=== PATIENT | female | born 1970 | race Two or more races ===

== ENCOUNTER 2016-08-18 13:40 | Emergency (ER) | payer OTHER ==
[~2016-08-18 13:40] MED LIST: DOCU10CA PO; FLUO40CA PO; GABA600T PO; HYDR-3719 PO; LORA10TA2 PO; LORT5TAB PO; MECL-68 PO; NEUR600T PO; PROZ20CA11 PO; SENO8.6T10 PO; ZOFR8TAB PO; albuterol inhaler INH; birth control pill OR; claritin OR; vicodin OR
[2016-08-18] MEDS ORDERED: HYDROmorphone HCL 1 MG/ML SYRINGE (J1170) As Ordered ONE (14:22)
[2016-08-18] MEDS ORDERED: ONDANSETRON 4MG/2ML VIAL (J2405) As Ordered ONE (14:22)
[2016-08-18] MEDS ORDERED: IPRATROPIUM 0.5MG/ALBUTEROL 2.5MG INH SOL UD 3ML (DUONEB)(J7620) As Ordered ONE (14:26)
[2016-08-18 15:09] LABS: BASO % 0.5 % (0.0-1.0); EOS # 0.4 K/mm3 (0.0-0.50); EOS % 4.8 % (0.0-3.0); LARGE UNSTAINED CELL # 0.3 K/mm3 (0.0-0.4); LARGE UNSTAINED CELL % 3.5 % (0.0-4.0); LYMPH # 2.9 K/mm3 (1.5-4.5); LYMPH % 35.5 % (24.0-44.0); MEAN CORPUSCULAR HEMOGLOBIN 26.8 pg (27.0-33.0); MEAN CORPUSCULAR HGB CONC 33.1 g/dl (32.0-36.5); MEAN CORPUSCULAR VOLUME 81.1 fl (80.0-96.0); MONO # 0.5 K/mm3 (0.0-0.8); MONO % 6.8 % (0.0-5.0); PLATELET COUNT, AUTOMATED 324 k/mm3 (150-450); RED CELL DISTRIBUTION WIDTH 14.6 % (11.5-14.5); WHITE BLOOD COUNT 8.1 K/mm3 (4.0-10.0)
[2016-08-18 15:50] LABS: CALCIUM LEVEL 8.9 MG/DL (8.5-10.1); CREATININE FOR GFR 1.13 MG/DL (0.55-1.02); GLOMERULAR FILTRATION RATE 55.4 (>58); POTASSIUM SERUM 4.6 MEQ/L (3.5-5.1)
--- NOTE | 2016-08-18 18:03 | EDDOCDS ---
Nurse's Notes [facility] Name: Amber Duff Age: 46 yrs Sex: Female : 1970 Arrival Date: 08/18/2016 Time: 13:40 Bed 8 Private MD: Diagnosis: Chest pain, unspecified;Dyspnea Presentation: 08/18 13:47 Presenting complaint: Patient states: night sweats the past 2 nights, heaviness to jjr sternal and left anterior chest constant since 0900 this morning, reports vertigo and HELMS developing HARP MAKER, 324 mg ASA and 1 nitro given en route. Aspirin was taken HARP MAKER. Adult Sepsis Screening: The patient does not have new or worsening altered mentation. Patient's respiratory rate is less than 22. Systolic blood pressure is greater than 100. Patient has a qSOFA score of 0- Negative Sepsis Screen. Suicide/Homicide risk assessment- the patient denies having any suicidal and/or homicidal ideations and does not present with any other emotional, behavioral or mental health complaints. 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 Transition of care: patient was not received from another setting of care. 13:47 Acuity: HANS Level 3 jjr 13:47 Method Of Arrival: Ambulance jjr Triage Assessment: 14:03 General: Appears in no apparent distress, well nourished, well groomed, Behavior is jjr appropriate for age, pt had sudden onset of pain to both legs with stiffening noted then had pain to hip which she needed to stand and reposition to relieve, pt reports extra physical strain with work this past week. Pain: Location: mid-sternal area and left breast. Pt Declines HIV testing. Neurological: No deficits noted. Reports dizziness, headache. Cardiovascular: Chest pain radiates Does not radiate. episodes are continuous began 5 hours HARP MAKER. Respiratory: Airway is patent Respiratory effort is even, unlabored, Respiratory pattern is regular. Derm: Skin is pink, warm & dry. 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 Cymbalta 60 mg Oral cpDR 1 cap once daily 2. gabapentin 1200mg Oral tab 3 times per day 3. magnesium oxide 400 mg Oral tab twice a day 4. meclizine 25 mg Oral tab 1 tab tid prn 5. Zofran (as hydrochloride) 4 mg Oral tab 2 tabs q8h prn 6. naproxen 500 mg Oral tab 1 tab 2 times per day - PMHx: Asthma; Levon's disease; peripheral neuropathy; Vertigo; Chronic CSF leak; - PSHx: Tubal ligation; Rhinoplasty; Tonsillectomy; varicose veins; Hysterectomy; Sinus Surgery; left shoulder and right hip surgeries; - Social history: No barriers to communication noted, The patient speaks fluent Citizen Of [place], Smoking status: Patient states was never smoker of tobacco. - : The pt / caregiver states he / she is not on anticoagulants. Home medication list is obtained from the patient. - Exposure Risk Screening:: None identified. Screenin:44 Screening information is obtained from the patient. Fall risk: No risks identified. jjr Assistance ADL's: requires no assistance with activities of daily living. Abuse/DV Screen: The patient / caregiver reports he/she is: not in a situation that causes fear, pain or injury. Nutritional screening: No deficits noted. Advance Directives: There is no active DNR order. home support is adequate. Assessment: 14:44 General: Appears in no apparent distress, reports HELMS and pain from waist down more jjr bothersome then chest heaviness. Cardiovascular: Rhythm is sinus rhythm. 16:00 General: Appears in no apparent distress, HELMS and chest pressure lessened since arrival. jjr 17:07 General: Appears in no apparent distress, talking on cell phone. Neurological: No jjr deficits noted. Cardiovascular: Rhythm is sinus rhythm. Respiratory: No deficits noted. Derm: No deficits noted. 18:02 General: Appears in no apparent distress, Behavior is appropriate for age. jjr Neurological: No deficits noted. Cardiovascular: Rhythm is sinus rhythm. Respiratory: No deficits noted. Derm: No deficits noted. Vital Signs: 14:02 BP 160 / 96; Pulse 88; Resp 20; Temp 96.4(O); Pulse Ox 99% on R/A; jjr 14:19 Weight 99.79 kg (R); Height 5 ft. 9 in. (175.26 cm) (R); Pain 8/10; jjr 14:20 BP 142 / 64 (auto/); jjr 14:20 Pulse 90 MON; Pulse Ox 97% ; jjr 14:40 BP 129 / 69 (auto/); jjr 14:40 Pulse 78 MON; Resp 18; Pulse Ox 90% on R/A; jjr 14:43 Pulse Ox 95% on R/A; jjr 14:43 Pain 7/10; jjr 15:00 BP 127 / 73 (auto/); jjr 15:00 Pulse 74 MON; Pulse Ox 90% ; jjr 15:05 Pulse 76 MON; Resp 20; Pulse Ox 92% on 3 lpm NC; jjr 15:20 BP 124 / 72 (auto/); jjr 15:20 Pulse 90 MON; Pulse Ox 90% ; jjr 15:39 Pulse 70 MON; Pulse Ox 93% ; jjr 15:40 BP 114 / 63 (auto/); jjr 16:00 BP 111 / 57 (auto/); jjr 16:00 Pulse 90 MON; Pulse Ox 97% ; jjr 16:20 BP 101 / 57 (auto/); jjr 16:20 Pulse 68 MON; Pulse Ox 96% ; jjr 16:40 BP 105 / 57 (auto/); jjr 16:40 Pulse 86 MON; Pulse Ox 97% ; jjr 17:00 BP 110 / 56 (auto/); jjr 17:00 Pulse 82 MON; Pulse Ox 99% ; jjr 17:40 BP 103 / 53 (auto/); jjr 17:40 Pulse 74 MON; Resp 18; Temp 96.4(O); Pulse Ox 96% on R/A; jjr 14:19 Body Mass Index 32.49 (99.79 kg, 175.26 cm) jjr Vitals: 14:02 Log In Time N/A - ambulance arrival. jr ED Course: 13:41 Patient visited by Enedelia Hidalgo, Science Education Professor. deg 13:41 Claudia Reagan, RN is Primary Nurse. deg 13:41 Patient moved to Waiting deg 13:41 Patient moved to 8 deg 13:47 Triage Initiated jjr 13:50 EKG done. (by ED staff). Reviewed by Ihsan Mckinley MD. jrd 13:56 Ihsan Mckinley MD is Attending Physician. ml 13:56 Patient visited by Ihsan Mckinley MD. ml 14:22 Patient visited by Max Clinton PCA. jrd 14:34 CARDIAC MARKER PANEL Sent. sew 14:34 MED Profile Sent. sew 14:34 CBC with Diff Sent. sew 14:44 The patient / caregiver is instructed regarding the plan of care and ED course. Cardiac jjr monitor on. Pulse ox on. NIBP on. 14:44 Maintain field IV. Dressing intact. Good blood return noted. Site clean & dry. Gauge & jjr site: 20 gauge right hand. 14:45 Patient visited by Claudia Reagan, ROSA. jjr 15:14 [facility] Payment Agreement was scanned into [employer] and attached to record. [email or web address] 16:01 Patient visited by Claudia Reagan RN. jjr 17:07 Patient visited by Ashia Carlson. sew 17:07 EKG done. (by ED staff). Reviewed by Ihsan Mckinley MD. sew 17:08 Patient visited by Claudia Reagan, ROSA. jjr 17:50 [facility] is Referral Physician. ml 18:02 Discontinued lock intact, bleeding controlled, pressure dressing applied, No jjr redness/swelling at site. No procedures done that require assistance. Administered Medications: 14:28 Drug: Ondansetron 4 mg [ondansetron HCl 2 mg/mL intravenous solution (2 mL)] Route: jjr IVP; Site: right hand; 14:28 Drug: Dilaudid - HYDROmorphone 1 mg [hydromorphone 1 mg/mL injection syringe (1 mL)] jjr Route: IVP; Site: right hand; 14:43 Follow up: Pain 10 Adult jjr 14:29 Drug: Albuterol-Ipratropium 3 ml [ipratropium-albuterol 0.5 mg-3 mg(2.5 mg base)/3 mL js11 nebulization soln (3 mL)] Route: Inhalation; RT: 14:29 Initial Med Neb Given as ordered Patient was instructed and evaluated on procedure js11 Patient tolerated procedure well without adverse effect. Oxygen is room air. Respiratory: Breath sounds are clear bilaterally. Order Results: Lab Order: CBC with Diff; SPEC'M 08/18/16 14:33 Test: WHITE BLOOD COUNT; Value: 8.1; Range: 4.0-10.0; Units: K/mm3; Status: F Test: RED BLOOD COUNT; Value: 5.22; Range: 4.00-5.40; Units: M/mm3; Status: F Test: HEMOGLOBIN; Value: 14.0; Range: 12.0-16.0; Units: g/dl; Status: F Test: HEMATOCRIT; Value: 42.3; Range: 36.0-47.0; Units: %; Status: F Test: MEAN CORPUSCULAR VOLUME; Value: 81.1; Range: 80.0-96.0; Units: fl; Status: F Test: MEAN CORPUSCULAR HEMOGLOBIN; Value: 26.8; Range: 27.0-33.0; Abnormal: Below low normal; Units: pg; Status: F Test: MEAN CORPUSCULAR HGB CONC; Value: 33.1; Range: 32.0-36.5; Units: g/dl; Status: F Test: RED CELL DISTRIBUTION WIDTH; Value: 14.6; Range: 11.5-14.5; Abnormal: Above high normal; Units: %; Status: F Test: PLATELET COUNT, AUTOMATED; Value: 324; Range: 150-450; Units: k/mm3; Status: F Test: NEUTROPHILS %; Value: 49.0; Range: 36.0-66.0; Units: %; Status: F Test: LYMPH %; Value: 35.5; Range: 24.0-44.0; Units: %; Status: F Test: MONO %; Value: 6.8; Range: 0.0-5.0; Abnormal: Above high normal; Units: %; Status: F Test: EOS %; Value: 4.8; Range: 0.0-3.0; Abnormal: Above high normal; Units: %; Status: F Test: BASO %; Value: 0.5; Range: 0.0-1.0; Units: %; Status: F Test: LARGE UNSTAINED CELL %; Value: 3.5; Range: 0.0-4.0; Units: %; Status: F Test: NEUTROPHILS #; Value: 4.0; Range: 1.8-7.7; Units: K/mm3; Status: F Test: LYMPH #; Value: 2.9; Range: 1.5-4.5; Units: K/mm3; Status: F Test: MONO #; Value: 0.5; Range: 0.0-0.8; Units: K/mm3; Status: F Test: EOS #; Value: 0.4; Range: 0.0-0.50; Units: K/mm3; Status: F Test: BASO #; Value: 0.0; Range: 0.0-0.2; Units: K/mm3; Status: F Test: LARGE UNSTAINED CELL #; Value: 0.3; Range: 0.0-0.4; Units: K/mm3; Status: F Lab Order: MED Profile; SPEC'M 08/18/16 14:33 Test: GLUCOSE, FASTING; Value: 94; Range: 70-105; Units: MG/DL; Status: F Test: BLOOD UREA NITROGEN; Value: 23; Range: 7-18; Abnormal: Above high normal; Units: MG/DL; Status: F Test: CREATININE FOR GFR; Value: 1.13; Range: 0.55-1.02; Abnormal: Above high normal; Units: MG/DL; Status: F Test: GLOMERULAR FILTRATION RATE; Value: 55.4; Range: >58; Abnormal: Below low normal; Status: F Test: SODIUM LEVEL; Value: 143; Range: 136-145; Units: MEQ/L; Status: F Test: POTASSIUM SERUM; Value: 4.6; Range: 3.5-5.1; Units: MEQ/L; Status: F Test: CHLORIDE LEVEL; Value: 109; Range: 98-107; Abnormal: Above high normal; Units: MEQ/L; Status: F Test: CARBON DIOXIDE LEVEL; Value: 25; Range: 21-32; Units: MEQ/L; Status: F Test: ANION GAP; Value: 9; Range: 8-16; Units: MEQ/L; Status: F Test: CALCIUM LEVEL; Value: 8.9; Range: 8.5-10.1; Units: MG/DL; Status: F Test Note: ; Units are mL/min/1.73 m2 Chronic Kidney Disease Staging per NKF: Stage I & II GFR >=60 Normal to Mildly Decreased Stage III GFR 30-59 Moderately Decreased Stage IV GFR 15-29 Severely Decreased Stage V GFR <15 Very Little GFR Left ESRD GFR <15 on COATINGS INSPECTOR Lab Order: CARDIAC MARKER PANEL; [facility] 08/18[facility] 14:33 Test: CPK CREATINE PHOSPHOKINASE; Value: 326; Range: 26-192; Abnormal: Above high normal; Units: U/L; Status: F Test: CK-MB VALUE MASS; Value: 3.7; Range: 0.0-3.6; Abnormal: Above high normal; Units: NG/ML; Status: F Test: MB/CK RELATIVE INDEX; Value: 1.13; Range: < OR =4; Status: F Test: TROPONIN I; Value: < 0.02; Range: < 0.10; Units: NG/ML; Status: F Test Note: ; DIAGNOSIS CRITERIA MMB ng/ml Relative Index (RI) NON-AMI < or = 5 N/A [place] > 5 < or = 4 AMI > 5 > 4 Lab Order: CARDIAC MARKER PANEL; [facility] 08/18/16 16:59 Test: CPK CREATINE PHOSPHOKINASE; Value: 308; Range: 26-192; Abnormal: Above high normal; Units: U/L; Status: F Test: CK-MB VALUE MASS; Value: 3.4; Range: 0.0-3.6; Units: NG/ML; Status: F Test: MB/CK RELATIVE INDEX; Value: 1.10; Range: < OR =4; Status: F Test: TROPONIN I; Value: < 0.02; Range: < 0.10; Units: NG/ML; Status: F Test Note: ; DIAGNOSIS CRITERIA MMB ng/ml Relative Index (RI) NON-AMI < or = 5 N/A [place] > 5 < or = 4 AMI > 5 > 4 Outcome: 17:50 Discharge ordered by Provider. ml 18:02 Discharge Assessment: patient administered narcotics - yes. Pt provided with safe jjr discharge. The following High Risk Discharge criteria are identified: None. Discharged to home ambulatory, with family. Condition: stable. Discharge instructions given to patient, Instructed on discharge instructions, follow up and referral plans. Demonstrated understanding of instructions. No special radiology studies were completed. Property sent home with patient. 18:03 Patient left the ED. jjr Signatures: Ihsan Mckinley MD MD ml Enedelia Hidalgo, Science Education Professor Unit deg Claudia Reagan, RN RN jjr Americo cMdonnell js11 Ashia Carlson Joseph, MANAGER WORKERS COMPENSATION MANAGER WORKERS COMPENSATION jrd Sweta Glasgow, Reg Reg [email or web address] Corrections: (The following items were deleted from the chart) 14:05 13:47 Presenting complaint: Patient states: night sweats the past 2 nights, heaviness jjr to sternal and left anterior chest constant since 0900 this morning, reports vertigo and HELMS developing HARP MAKER jjr MTDD
--- NOTE | 2016-08-18 18:03 | EDDOCDS ---
Physician Documentation [facility] Name: Amber Duff Age: 46 yrs Sex: Female : 1970 Arrival Date: 08/18/2016 Time: 13:40 Bed 8 Private MD: Disposition: 08/18/16 17:50 Discharged to Home/Self Care. Impression: Chest pain, unspecified, Dyspnea. - Condition is Stable. - Discharge Instructions: Nonspecific Chest Pain. - Medication Reconciliation, Local Pharmacy Hours form. - Follow up: [facility]; When: 2 - 3 days. - Problem is new. - Symptoms have improved. - Notes: return if worsening symptoms. follow up w dr adams. Historical: - Allergies: Cipro PO; Clindamycin; Doxycycline; IODINEIODINE CONTAINING; Morphine; Erythromycin; seafood; lactose (bulk); Peanut; - Home Meds: 1. Cymbalta 60 mg Oral cpDR 1 cap once daily 2. gabapentin 1200mg Oral tab 3 times per day 3. magnesium oxide 400 mg Oral tab twice a day 4. meclizine 25 mg Oral tab 1 tab tid prn 5. Zofran (as hydrochloride) 4 mg Oral tab 2 tabs q8h prn 6. naproxen 500 mg Oral tab 1 tab 2 times per day - PMHx: Asthma; Levon's disease; peripheral neuropathy; Vertigo; Chronic CSF leak; - PSHx: Tubal ligation; Rhinoplasty; Tonsillectomy; varicose veins; Hysterectomy; Sinus Surgery; left shoulder and right hip surgeries; - Social history: No barriers to communication noted, The patient speaks fluent [place], Smoking status: Patient states was never smoker of tobacco. - : The pt / caregiver states he / she is not on anticoagulants. Home medication list is obtained from the patient. - Exposure Risk Screening:: None identified. 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 9 in. (175.26 cm) (R); Pain 8/10; jjr 14:20 BP 142 / 64 (auto/); jjr 14:20 Pulse 90 MON; Pulse Ox 97% ; jjr 14:40 BP 129 / 69 (auto/); jjr 14:40 Pulse 78 MON; Resp 18; Pulse Ox 90% on R/A; jjr 14:43 Pulse Ox 95% on R/A; jjr 14:43 Pain 7/10; jjr 15:00 BP 127 / 73 (auto/); jjr 15:00 Pulse 74 MON; Pulse Ox 90% ; jjr 15:05 Pulse 76 MON; Resp 20; Pulse Ox 92% on 3 lpm NC; jjr 15:20 BP 124 / 72 (auto/); jjr 15:20 Pulse 90 MON; Pulse Ox 90% ; jjr 15:39 Pulse 70 MON; Pulse Ox 93% ; jjr 15:40 BP 114 / 63 (auto/); jjr 16:00 BP 111 / 57 (auto/); jjr 16:00 Pulse 90 MON; Pulse Ox 97% ; jjr 16:20 BP 101 / 57 (auto/); jjr 16:20 Pulse 68 MON; Pulse Ox 96% ; jjr 16:40 BP 105 / 57 (auto/); jjr 16:40 Pulse 86 MON; Pulse Ox 97% ; jjr 17:00 BP 110 / 56 (auto/); jjr 17:00 Pulse 82 MON; Pulse Ox 99% ; jjr 17:40 BP 103 / 53 (auto/); jjr 17:40 Pulse 74 MON; Resp 18; Temp 96.4(O); Pulse Ox 96% on R/A; jjr 14:19 Body Mass Index 32.49 (99.79 kg, 175.26 cm) jjr MDM: 13:49 ECG WITH READING ER PHYS+CARDIAG ordered. EDMS 14:11 IV Saline Lock ordered. ml 14:11 Buttonhole Marker/Pulse Ox/q 15 min VS ordered. ml 14:11 Rhythm Strip to chart ordered. ml 14:11 Repeat EKG (put time details section) ordered. ml 14:11 Redraw CIP &Troponin (put time in details section) ordered. ml 14:11 Albuterol-Ipratropium 3 ml Inhalation once ordered. ml 14:11 Call Respiratory ordered. ml 14:12 CBC with Diff Ordered. EDMS 14:12 MED Profile Ordered. EDMS 14:12 Chest, 1 View Ordered. EDMS 14:13 Ondansetron 4 mg IVP once ordered. ml 14:13 Dilaudid - HYDROmorphone 1 mg IVP once ordered. ml 14:17 Call Respiratory complete. deg 14:17 Redraw CIP &Troponin (put time in details section) complete. deg 14:18 Repeat EKG (put time details section) complete. deg 14:18 ECG WITH READING ER PHYS ordered. EDMS 14:19 CARDIAC MARKER PANEL Ordered. EDMS 15:10 Financial registration complete. [email or web address] 15:14 [facility] Payment Agreement was scanned into [employer] and attached to record. [email or web address] 15:31 CBC with Diff Reviewed. ml 15:31 CARDIAC MARKER PANEL Reviewed. ml 15:53 MED Profile Reviewed. ml 17:10 CARDIAC MARKER PANEL Ordered. EDMS 17:40 CARDIAC MARKER PANEL Reviewed. ml Administered Medications: 14:28 Drug: Ondansetron 4 mg [ondansetron HCl 2 mg/mL intravenous solution (2 mL)] Route: jjr IVP; Site: right hand; 14:28 Drug: Dilaudid - HYDROmorphone 1 mg [hydromorphone 1 mg/mL injection syringe (1 mL)] jjr Route: IVP; Site: right hand; 14:43 Follow up: Pain 01/14 Adult jjr 14:29 Drug: Albuterol-Ipratropium 3 ml [ipratropium-albuterol 0.5 mg-3 mg(2.5 mg base)/3 mL js11 nebulization soln (3 mL)] Route: Inhalation; Signatures: Dispatcher [employer] EDOK Ihsan Mckinley MD MD ml Murray, Denise, Valet Attendant Unit deg Claudia Reagan RN RN Sweta Menard, Reg Reg [email or web address] Americo Mcdonnell js11 The chart was reviewed and I authenticate all verbal orders and agree with the evaluation and treatment provided.Corrections: (The following items were deleted from the chart) 15:36 14:12 CARDIAC INJURY PROFILE+LAB ordered. EDMS EDMS 15:36 14:12 TROPONIN+LAB ordered. EDMS EDMS Attachments: 15:14 [facility] Payment Agreement [email or web address] MTDD
--- NOTE | 2016-08-19 06:29 | ECGEPIP ---
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
--- NOTE | 2016-08-19 06:33 | ECGEPIP ---
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
--- NOTE | 2016-08-19 07:59 | REP ---
AP PORTABLE CHEST: 08/18/2016. Clinical history: Dyspnea, chest pain. Comparison: 06/01/2016 chest x-ray, portable chest 02/20/2016. Lungs are well inflated without infiltrate, effusion, atelectasis. Heart not enlarged for portable technique. There is no vascular redistribution or edema. The airway and aorta unremarkable. No free air under the diaphragm. No apical pneumothorax. Impression: 1. No acute cardiopulmonary change. Signed by Hunter Begum MD 08/19/2016 06:52 P
--- NOTE | 2016-08-20 19:04 | EDDOCDS ---
Physician Documentation [facility] Name: Amber Duff Age: 46 yrs Sex: Female : 1970 Arrival Date: 08/18/2016 Time: 13:40 Bed 8 Private MD: Disposition: 08/18/16 17:50 Discharged to Home/Self Care. Impression: Chest pain, unspecified, Dyspnea. - Condition is Stable. - Discharge Instructions: Nonspecific Chest Pain. - Medication Reconciliation, Local Pharmacy Hours form. - Follow up: Jose Garza [facility]; When: 2 - 3 days. - Problem is new. - Symptoms have improved. - Notes: return if worsening symptoms. follow up w dr adams. Historical: - Allergies: Cipro PO; Clindamycin; Doxycycline; IODINEIODINE CONTAINING; Morphine; Erythromycin; seafood; lactose (bulk); Peanut; - Home Meds: 1. Cymbalta 60 mg Oral cpDR 1 cap once daily 2. gabapentin 1200mg Oral tab 3 times per day 3. magnesium oxide 400 mg Oral tab twice a day 4. meclizine 25 mg Oral tab 1 tab tid prn 5. Zofran (as hydrochloride) 4 mg Oral tab 2 tabs q8h prn 6. naproxen 500 mg Oral tab 1 tab 2 times per day - PMHx: Asthma; Levon's disease; peripheral neuropathy; Vertigo; Chronic CSF leak; - PSHx: Tubal ligation; Rhinoplasty; Tonsillectomy; varicose veins; Hysterectomy; Sinus Surgery; left shoulder and right hip surgeries; - Social history: No barriers to communication noted, The patient speaks fluent Polish, Smoking status: Patient states was never smoker of tobacco. - : The pt / caregiver states he / she is not on anticoagulants. Home medication list is obtained from the patient. - Exposure Risk Screening:: None identified. 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 9 in. (175.26 cm) (R); Pain 8/10; jjr 14:20 BP 142 / 64 (auto/); jjr 14:20 Pulse 90 MON; Pulse Ox 97% ; jjr 14:40 BP 129 / 69 (auto/); jjr 14:40 Pulse 78 MON; Resp 18; Pulse Ox 90% on R/A; jjr 14:43 Pulse Ox 95% on R/A; jjr 14:43 Pain 7/10; jjr 15:00 BP 127 / 73 (auto/); jjr 15:00 Pulse 74 MON; Pulse Ox 90% ; jjr 15:05 Pulse 76 MON; Resp 20; Pulse Ox 92% on 3 lpm NC; jjr 15:20 BP 124 / 72 (auto/); jjr 15:20 Pulse 90 MON; Pulse Ox 90% ; jjr 15:39 Pulse 70 MON; Pulse Ox 93% ; jjr 15:40 BP 114 / 63 (auto/); jjr 16:00 BP 111 / 57 (auto/); jjr 16:00 Pulse 90 MON; Pulse Ox 97% ; jjr 16:20 BP 101 / 57 (auto/); jjr 16:20 Pulse 68 MON; Pulse Ox 96% ; jjr 16:40 BP 105 / 57 (auto/); jjr 16:40 Pulse 86 MON; Pulse Ox 97% ; jjr 17:00 BP 110 / 56 (auto/); jjr 17:00 Pulse 82 MON; Pulse Ox 99% ; jjr 17:40 BP 103 / 53 (auto/); jjr 17:40 Pulse 74 MON; Resp 18; Temp 96.4(O); Pulse Ox 96% on R/A; jjr 14:19 Body Mass Index 32.49 (99.79 kg, 175.26 cm) jjr MDM: 13:49 ECG WITH READING ER PHYS+CARDIAG ordered. EDMS 14:11 IV Saline Lock ordered. ml 14:11 Formulator Compounder/Pulse Ox/q 15 min VS ordered. ml 14:11 Rhythm Strip to chart ordered. ml 14:11 Repeat EKG (put time details section) ordered. ml 14:11 Redraw CIP &Troponin (put time in details section) ordered. ml 14:11 Albuterol-Ipratropium 3 ml Inhalation once ordered. ml 14:11 Call Respiratory ordered. ml 14:12 CBC with Diff Ordered. EDMS 14:12 MED Profile Ordered. EDMS 14:12 Chest, 1 View Ordered. EDMS 14:13 Ondansetron 4 mg IVP once ordered. ml 14:13 Dilaudid - HYDROmorphone 1 mg IVP once ordered. ml 14:17 Call Respiratory complete. deg 14:17 Redraw CIP &Troponin (put time in details section) complete. deg 14:18 Repeat EKG (put time details section) complete. deg 14:18 ECG WITH READING ER PHYS ordered. EDMS 14:19 CARDIAC MARKER PANEL Ordered. EDMS 15:10 Financial registration complete. [id number] 15:14 [id number] Payment Agreement was scanned into [employer] and attached to record. [email or web address] 15:31 CBC with Diff Reviewed. ml 15:31 CARDIAC MARKER PANEL Reviewed. ml 15:53 MED Profile Reviewed. ml 17:10 CARDIAC MARKER PANEL Ordered. EDMS 17:40 CARDIAC MARKER PANEL Reviewed. ml 22:05 T-Sheet-- Draft Copy was scanned into [employer] and attached to record. klr 08/19 18:08 PCR was scanned into [employer] and attached to record. kf3 02 10:33 ECG/EKG was scanned into [employer] and attached to record. gb 10:33 Radiology Report was scanned into [employer] and attached to record. gb Administered Medications: 08/18 14:28 Drug: Ondansetron 4 mg [ondansetron HCl 2 mg/mL intravenous solution (2 mL)] Route: jjr IVP; Site: right hand; 14:28 Drug: Dilaudid - HYDROmorphone 1 mg [hydromorphone 1 mg/mL injection syringe (1 mL)] jjr Route: IVP; Site: right hand; 14:43 Follow up: Pain 01/14 Adult jjr 14:29 Drug: Albuterol-Ipratropium 3 ml [ipratropium-albuterol 0.5 mg-3 mg(2.5 mg base)/3 mL js11 nebulization soln (3 mL)] Route: Inhalation; Signatures: Dispatcher [employer] EDIhsan Beltrán MD MD ml Murray, Denise, Hearing Examiner Unit deg Emmanuelle Cota, Reg Reg gb Fidcarlier, Gustavo, Reg Reg kf3 Claudia Reagan, RN RN Sweta Menard, Reg Reg ks16 Cierra Christensen Jordan js11 The chart was reviewed and I authenticate all verbal orders and agree with the evaluation and treatment provided.Corrections: (The following items were deleted from the chart) 15:36 14:12 CARDIAC INJURY PROFILE+LAB ordered. EDMS EDMS 15:36 14:12 TROPONIN+LAB ordered. EDMS EDMS Attachments: 15:14 [facility] Payment Agreement [email or web address] 22:05 T-Sheet-- Draft Copy r 08/20 10:33 ECG/EKG gb Chart Complete MTDD
--- NOTE | 2016-08-20 19:04 | EDDOCDS ---
Physician Documentation [facility] Name: Amber Duff Age: 46 yrs Sex: Female : 1970 Arrival Date: 08/18/2016 Time: 13:40 Bed 8 Private MD: Disposition: 08/18/16 17:50 Discharged to Home/Self Care. Impression: Chest pain, unspecified, Dyspnea. - Condition is Stable. - Discharge Instructions: Nonspecific Chest Pain. - Medication Reconciliation, Local Pharmacy Hours form. - Follow up: Jose Garza [facility]; When: 2 - 3 days. - Problem is new. - Symptoms have improved. - Notes: return if worsening symptoms. follow up w dr adams. Historical: - Allergies: Cipro PO; Clindamycin; Doxycycline; IODINEIODINE CONTAINING; Morphine; Erythromycin; seafood; lactose (bulk); Peanut; - Home Meds: 1. Cymbalta 60 mg Oral cpDR 1 cap once daily 2. gabapentin 1200mg Oral tab 3 times per day 3. magnesium oxide 400 mg Oral tab twice a day 4. meclizine 25 mg Oral tab 1 tab tid prn 5. Zofran (as hydrochloride) 4 mg Oral tab 2 tabs q8h prn 6. naproxen 500 mg Oral tab 1 tab 2 times per day - PMHx: Asthma; Levon's disease; peripheral neuropathy; Vertigo; Chronic CSF leak; - PSHx: Tubal ligation; Rhinoplasty; Tonsillectomy; varicose veins; Hysterectomy; Sinus Surgery; left shoulder and right hip surgeries; - Social history: No barriers to communication noted, The patient speaks fluent Latvian, Smoking status: Patient states was never smoker of tobacco. - : The pt / caregiver states he / she is not on anticoagulants. Home medication list is obtained from the patient. - Exposure Risk Screening:: None identified. 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 9 in. (175.26 cm) (R); Pain 8/10; jjr 14:20 BP 142 / 64 (auto/); jjr 14:20 Pulse 90 MON; Pulse Ox 97% ; jjr 14:40 BP 129 / 69 (auto/); jjr 14:40 Pulse 78 MON; Resp 18; Pulse Ox 90% on R/A; jjr 14:43 Pulse Ox 95% on R/A; jjr 14:43 Pain 7/10; jjr 15:00 BP 127 / 73 (auto/); jjr 15:00 Pulse 74 MON; Pulse Ox 90% ; jjr 15:05 Pulse 76 MON; Resp 20; Pulse Ox 92% on 3 lpm NC; jjr 15:20 BP 124 / 72 (auto/); jjr 15:20 Pulse 90 MON; Pulse Ox 90% ; jjr 15:39 Pulse 70 MON; Pulse Ox 93% ; jjr 15:40 BP 114 / 63 (auto/); jjr 16:00 BP 111 / 57 (auto/); jjr 16:00 Pulse 90 MON; Pulse Ox 97% ; jjr 16:20 BP 101 / 57 (auto/); jjr 16:20 Pulse 68 MON; Pulse Ox 96% ; jjr 16:40 BP 105 / 57 (auto/); jjr 16:40 Pulse 86 MON; Pulse Ox 97% ; jjr 17:00 BP 110 / 56 (auto/); jjr 17:00 Pulse 82 MON; Pulse Ox 99% ; jjr 17:40 BP 103 / 53 (auto/); jjr 17:40 Pulse 74 MON; Resp 18; Temp 96.4(O); Pulse Ox 96% on R/A; jjr 14:19 Body Mass Index 32.49 (99.79 kg, 175.26 cm) jjr MDM: 13:49 ECG WITH READING ER PHYS+CARDIAG ordered. EDMS 14:11 IV Saline Lock ordered. ml 14:11 Shoulder Boner/Pulse Ox/q 15 min VS ordered. ml 14:11 Rhythm Strip to chart ordered. ml 14:11 Repeat EKG (put time details section) ordered. ml 14:11 Redraw CIP &Troponin (put time in details section) ordered. ml 14:11 Albuterol-Ipratropium 3 ml Inhalation once ordered. ml 14:11 Call Respiratory ordered. ml 14:12 CBC with Diff Ordered. EDMS 14:12 MED Profile Ordered. EDMS 14:12 Chest, 1 View Ordered. EDMS 14:13 Ondansetron 4 mg IVP once ordered. ml 14:13 Dilaudid - HYDROmorphone 1 mg IVP once ordered. ml 14:17 Call Respiratory complete. deg 14:17 Redraw CIP &Troponin (put time in details section) complete. deg 14:18 Repeat EKG (put time details section) complete. deg 14:18 ECG WITH READING ER PHYS ordered. EDMS 14:19 CARDIAC MARKER PANEL Ordered. EDMS 15:10 Financial registration complete. [email or web address] 15:14 [facility] Payment Agreement was scanned into [employer] and attached to record. [email or web address] 15:31 CBC with Diff Reviewed. ml 15:31 CARDIAC MARKER PANEL Reviewed. ml 15:53 MED Profile Reviewed. ml 17:10 CARDIAC MARKER PANEL Ordered. EDMS 17:40 CARDIAC MARKER PANEL Reviewed. ml 22:05 T-Sheet-- Draft Copy was scanned into [employer] and attached to record. klr 08/19 18:08 PCR was scanned into [employer] and attached to record. kf3 02 10:33 ECG/EKG was scanned into [employer] and attached to record. gb 10:33 Radiology Report was scanned into [employer] and attached to record. gb Administered Medications: 08/18 14:28 Drug: Ondansetron 4 mg [ondansetron HCl 2 mg/mL intravenous solution (2 mL)] Route: jjr IVP; Site: right hand; 14:28 Drug: Dilaudid - HYDROmorphone 1 mg [hydromorphone 1 mg/mL injection syringe (1 mL)] jjr Route: IVP; Site: right hand; 14:43 Follow up: Pain 01/14 Adult jjr 14:29 Drug: Albuterol-Ipratropium 3 ml [ipratropium-albuterol 0.5 mg-3 mg(2.5 mg base)/3 mL js11 nebulization soln (3 mL)] Route: Inhalation; Signatures: Dispatcher [employer] EDIhsan Beltrán MD MD ml Murray, Denise, Plant Guide Unit deg Emmanuelle Cota, Reg Reg gb Fidcarlier, Gustavo, Reg Reg kf3 Claudia Reagan, RN RN Sweta Menard, Reg Reg ks16 Cierra Christensen Jordan js11 The chart was reviewed and I authenticate all verbal orders and agree with the evaluation and treatment provided.Corrections: (The following items were deleted from the chart) 15:36 14:12 CARDIAC INJURY PROFILE+LAB ordered. EDMS EDMS 15:36 14:12 TROPONIN+LAB ordered. EDMS EDMS Attachments: 15:14 [facility] Payment Agreement [email or web address] 22:05 T-Sheet-- Draft Copy r 08/20 10:33 ECG/EKG gb Chart Complete MTDD
--- NOTE | 2016-08-20 19:05 | EDDOCDS ---
Nurse's Notes [facility] Name: Amber Duff Age: 46 yrs Sex: Female : 1970 Arrival Date: 08/18/2016 Time: 13:40 Bed 8 Private MD: Diagnosis: Chest pain, unspecified;Dyspnea Presentation: 08/18 13:47 Presenting complaint: Patient states: night sweats the past 2 nights, heaviness to jjr sternal and left anterior chest constant since 0900 this morning, reports vertigo and HELMS developing PLATE MOUNTER, 324 mg ASA and 1 nitro given en route. Aspirin was taken PLATE MOUNTER. Adult Sepsis Screening: The patient does not have new or worsening altered mentation. Patient's respiratory rate is less than 22. Systolic blood pressure is greater than 100. Patient has a qSOFA score of 0- Negative Sepsis Screen. Suicide/Homicide risk assessment- the patient denies having any suicidal and/or homicidal ideations and does not present with any other emotional, behavioral or mental health complaints. Status: Patient is not a emergency service worker or dependent. Transition of care: patient was not received from another setting of care. 13:47 Acuity: HANS Level 3 jjr 13:47 Method Of Arrival: Ambulance jjr Triage Assessment: 14:03 General: Appears in no apparent distress, well nourished, well groomed, Behavior is jjr appropriate for age, pt had sudden onset of pain to both legs with stiffening noted then had pain to hip which she needed to stand and reposition to relieve, pt reports extra physical strain with work this past week. Pain: Location: mid-sternal area and left breast. Pt Declines HIV testing. Neurological: No deficits noted. Reports dizziness, headache. Cardiovascular: Chest pain radiates Does not radiate. episodes are continuous began 5 hours PLATE MOUNTER. Respiratory: Airway is patent Respiratory effort is even, unlabored, Respiratory pattern is regular. Derm: Skin is pink, warm & dry. 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 Cymbalta 60 mg Oral cpDR 1 cap once daily 2. gabapentin 1200mg Oral tab 3 times per day 3. magnesium oxide 400 mg Oral tab twice a day 4. meclizine 25 mg Oral tab 1 tab tid prn 5. Zofran (as hydrochloride) 4 mg Oral tab 2 tabs q8h prn 6. naproxen 500 mg Oral tab 1 tab 2 times per day - PMHx: Asthma; Levon's disease; peripheral neuropathy; Vertigo; Chronic CSF leak; - PSHx: Tubal ligation; Rhinoplasty; Tonsillectomy; varicose veins; Hysterectomy; Sinus Surgery; left shoulder and right hip surgeries; - Social history: No barriers to communication noted, The patient speaks fluent Guinean, Smoking status: Patient states was never smoker of tobacco. - : The pt / caregiver states he / she is not on anticoagulants. Home medication list is obtained from the patient. - Exposure Risk Screening:: None identified. Screenin:44 Screening information is obtained from the patient. Fall risk: No risks identified. jjr Assistance ADL's: requires no assistance with activities of daily living. Abuse/DV Screen: The patient / caregiver reports he/she is: not in a situation that causes fear, pain or injury. Nutritional screening: No deficits noted. Advance Directives: There is no active DNR order. home support is adequate. Assessment: 14:44 General: Appears in no apparent distress, reports HELMS and pain from waist down more jjr bothersome then chest heaviness. Cardiovascular: Rhythm is sinus rhythm. 16:00 General: Appears in no apparent distress, HELMS and chest pressure lessened since arrival. jjr 17:07 General: Appears in no apparent distress, talking on cell phone. Neurological: No jjr deficits noted. Cardiovascular: Rhythm is sinus rhythm. Respiratory: No deficits noted. Derm: No deficits noted. 18:02 General: Appears in no apparent distress, Behavior is appropriate for age. jjr Neurological: No deficits noted. Cardiovascular: Rhythm is sinus rhythm. Respiratory: No deficits noted. Derm: No deficits noted. Vital Signs: 14:02 BP 160 / 96; Pulse 88; Resp 20; Temp 96.4(O); Pulse Ox 99% on R/A; jjr 14:19 Weight 99.79 kg (R); Height 5 ft. 9 in. (175.26 cm) (R); Pain 8/10; jjr 14:20 BP 142 / 64 (auto/); jjr 14:20 Pulse 90 MON; Pulse Ox 97% ; jjr 14:40 BP 129 / 69 (auto/); jjr 14:40 Pulse 78 MON; Resp 18; Pulse Ox 90% on R/A; jjr 14:43 Pulse Ox 95% on R/A; jjr 14:43 Pain 7/10; jjr 15:00 BP 127 / 73 (auto/); jjr 15:00 Pulse 74 MON; Pulse Ox 90% ; jjr 15:05 Pulse 76 MON; Resp 20; Pulse Ox 92% on 3 lpm NC; jjr 15:20 BP 124 / 72 (auto/); jjr 15:20 Pulse 90 MON; Pulse Ox 90% ; jjr 15:39 Pulse 70 MON; Pulse Ox 93% ; jjr 15:40 BP 114 / 63 (auto/); jjr 16:00 BP 111 / 57 (auto/); jjr 16:00 Pulse 90 MON; Pulse Ox 97% ; jjr 16:20 BP 101 / 57 (auto/); jjr 16:20 Pulse 68 MON; Pulse Ox 96% ; jjr 16:40 BP 105 / 57 (auto/); jjr 16:40 Pulse 86 MON; Pulse Ox 97% ; jjr 17:00 BP 110 / 56 (auto/); jjr 17:00 Pulse 82 MON; Pulse Ox 99% ; jjr 17:40 BP 103 / 53 (auto/); jjr 17:40 Pulse 74 MON; Resp 18; Temp 96.4(O); Pulse Ox 96% on R/A; jjr 14:19 Body Mass Index 32.49 (99.79 kg, 175.26 cm) jjr Vitals: 14:02 Log In Time N/A - ambulance arrival. jr ED Course: 13:41 Patient visited by Enedelia Hidalgo, Head Bone Grinder. deg 13:41 Claudia Reagan, RN is Primary Nurse. deg 13:41 Patient moved to Waiting deg 13:41 Patient moved to 8 deg 13:47 Triage Initiated jjr 13:50 EKG done. (by ED staff). Reviewed by Ihsan Mckinley MD. jrd 13:56 Ihsan Mckinley MD is Attending Physician. ml 13:56 Patient visited by Ihsan Mckinley MD. ml 14:22 Patient visited by Max Clinton PCA. jrd 14:34 CARDIAC MARKER PANEL Sent. sew 14:34 MED Profile Sent. sew 14:34 CBC with Diff Sent. sew 14:44 The patient / caregiver is instructed regarding the plan of care and ED course. Cardiac jjr monitor on. Pulse ox on. NIBP on. 14:44 Maintain field IV. Dressing intact. Good blood return noted. Site clean & dry. Gauge & jjr site: 20 gauge right hand. 14:45 Patient visited by Claudia Reagan, ROSA. jjr 15:14 [facility] Payment Agreement was scanned into [employer] and attached to record. ks16 16:01 Patient visited by Claudia Reagan, ROSA. jjr 17:07 Patient visited by Ashia Carlson. sew 17:07 EKG done. (by ED staff). Reviewed by Ihsan Mckinley MD. sew 17:08 Patient visited by Claudia Reagan, ROSA. jjr 17:50 [facility] ml 18:02 Discontinued lock intact, bleeding controlled, pressure dressing applied, No jjr redness/swelling at site. No procedures done that require assistance. 22:05 T-Sheet-- Draft Copy was scanned into [employer] and attached to record. klr 08/19 06:44 EKG-ADULT Returned. EDMS 06:44 ECG WITH READING ER PHYS Returned. EDMS 08:11 Chest, 1 View Returned. EDMS 18:08 PCR was scanned into [employer] and attached to record. kf3 08/20 10:33 ECG/EKG was scanned into [employer] and attached to record. gb 10:33 Radiology Report was scanned into [employer] and attached to record. gb Administered Medications: 08/18 14:28 Drug: Ondansetron 4 mg [ondansetron HCl 2 mg/mL intravenous solution (2 mL)] Route: jjr IVP; Site: right hand; 14:28 Drug: Dilaudid - HYDROmorphone 1 mg [hydromorphone 1 mg/mL injection syringe (1 mL)] jjr Route: IVP; Site: right hand; 14:43 Follow up: Pain 01/14 Adult jjr 14:29 Drug: Albuterol-Ipratropium 3 ml [ipratropium-albuterol 0.5 mg-3 mg(2.5 mg base)/3 mL js11 nebulization soln (3 mL)] Route: Inhalation; RT: 14:29 Initial Med Neb Given as ordered Patient was instructed and evaluated on procedure js11 Patient tolerated procedure well without adverse effect. Oxygen is room air. Respiratory: Breath sounds are clear bilaterally. Order Results: Lab Order: CBC with Diff; SPEC'M 08/18/16 14:33 Test: WHITE BLOOD COUNT; Value: 8.1; Range: 4.0-10.0; Units: K/mm3; Status: F Test: RED BLOOD COUNT; Value: 5.22; Range: 4.00-5.40; Units: M/mm3; Status: F Test: HEMOGLOBIN; Value: 14.0; Range: 12.0-16.0; Units: g/dl; Status: F Test: HEMATOCRIT; Value: 42.3; Range: 36.0-47.0; Units: %; Status: F Test: MEAN CORPUSCULAR VOLUME; Value: 81.1; Range: 80.0-96.0; Units: fl; Status: F Test: MEAN CORPUSCULAR HEMOGLOBIN; Value: 26.8; Range: 27.0-33.0; Abnormal: Below low normal; Units: pg; Status: F Test: MEAN CORPUSCULAR HGB CONC; Value: 33.1; Range: 32.0-36.5; Units: g/dl; Status: F Test: RED CELL DISTRIBUTION WIDTH; Value: 14.6; Range: 11.5-14.5; Abnormal: Above high normal; Units: %; Status: F Test: PLATELET COUNT, AUTOMATED; Value: 324; Range: 150-450; Units: k/mm3; Status: F Test: NEUTROPHILS %; Value: 49.0; Range: 36.0-66.0; Units: %; Status: F Test: LYMPH %; Value: 35.5; Range: 24.0-44.0; Units: %; Status: F Test: MONO %; Value: 6.8; Range: 0.0-5.0; Abnormal: Above high normal; Units: %; Status: F Test: EOS %; Value: 4.8; Range: 0.0-3.0; Abnormal: Above high normal; Units: %; Status: F Test: BASO %; Value: 0.5; Range: 0.0-1.0; Units: %; Status: F Test: LARGE UNSTAINED CELL %; Value: 3.5; Range: 0.0-4.0; Units: %; Status: F Test: NEUTROPHILS #; Value: 4.0; Range: 1.8-7.7; Units: K/mm3; Status: F Test: LYMPH #; Value: 2.9; Range: 1.5-4.5; Units: K/mm3; Status: F Test: MONO #; Value: 0.5; Range: 0.0-0.8; Units: K/mm3; Status: F Test: EOS #; Value: 0.4; Range: 0.0-0.50; Units: K/mm3; Status: F Test: BASO #; Value: 0.0; Range: 0.0-0.2; Units: K/mm3; Status: F Test: LARGE UNSTAINED CELL #; Value: 0.3; Range: 0.0-0.4; Units: K/mm3; Status: F Lab Order: [facility]; SPEC'M 08/18/16 14:33 Test: GLUCOSE, FASTING; Value: 94; Range: 70-105; Units: MG/DL; Status: F Test: BLOOD UREA NITROGEN; Value: 23; Range: 7-18; Abnormal: Above high normal; Units: MG/DL; Status: F Test: CREATININE FOR GFR; Value: 1.13; Range: 0.55-1.02; Abnormal: Above high normal; Units: MG/DL; Status: F Test: GLOMERULAR FILTRATION RATE; Value: 55.4; Range: >58; Abnormal: Below low normal; Status: F Test: SODIUM LEVEL; Value: 143; Range: 136-145; Units: MEQ/L; Status: F Test: POTASSIUM SERUM; Value: 4.6; Range: 3.5-5.1; Units: MEQ/L; Status: F Test: CHLORIDE LEVEL; Value: 109; Range: 98-107; Abnormal: Above high normal; Units: MEQ/L; Status: F Test: CARBON DIOXIDE LEVEL; Value: 25; Range: 21-32; Units: MEQ/L; Status: F Test: ANION GAP; Value: 9; Range: 8-16; Units: MEQ/L; Status: F Test: CALCIUM LEVEL; Value: 8.9; Range: 8.5-10.1; Units: MG/DL; Status: F Test Note: ; Units are mL/min/1.73 m2 Chronic Kidney Disease Staging per NKF: Stage I & II GFR >=60 Normal to Mildly Decreased Stage III GFR 30-59 Moderately Decreased Stage IV GFR 15-29 Severely Decreased Stage V GFR <15 Very Little GFR Left ESRD GFR <15 on FINE ARTIST Lab Order: CARDIAC MARKER PANEL; SPEC'M 08/18/16 14:33 Test: CPK CREATINE PHOSPHOKINASE; Value: 326; Range: 26-192; Abnormal: Above high normal; Units: U/L; Status: F Test: CK-MB VALUE MASS; Value: 3.7; Range: 0.0-3.6; Abnormal: Above high normal; Units: NG/ML; Status: F Test: MB/CK RELATIVE INDEX; Value: 1.13; Range: < OR =4; Status: F Test: TROPONIN I; Value: < 0.02; Range: < 0.10; Units: NG/ML; Status: F Test Note: ; DIAGNOSIS CRITERIA MMB ng/ml Relative Index (RI) NON-AMI < or = 5 N/A [place] > 5 < or = 4 AMI > 5 > 4 Lab Order: CARDIAC MARKER PANEL; SPEC'M 08/18/16 16:59 Test: CPK CREATINE PHOSPHOKINASE; Value: 308; Range: 26-192; Abnormal: Above high normal; Units: U/L; Status: F Test: CK-MB VALUE MASS; Value: 3.4; Range: 0.0-3.6; Units: NG/ML; Status: F Test: MB/CK RELATIVE INDEX; Value: 1.10; Range: < OR =4; Status: F Test: TROPONIN I; Value: < 0.02; Range: < 0.10; Units: NG/ML; Status: F Test Note: ; DIAGNOSIS CRITERIA MMB ng/ml Relative Index (RI) NON-AMI < or = 5 N/A [place]ONE > 5 < or = 4 AMI > 5 > 4 Radiology Order: EKG-ADULT Test: EKG-ADULT REASON FOR EXAMINATION: Chest Pain; Stationary ECG Study; [facility] ED; ; Test Date: 2016-08-18; Pat Name: AMBER DUFF Department:; Room: -; Gender: F 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; : 1970 Requested By: Ihsan Mckinley; Order Number: [id number] Reading MD: Ihsan Mckinley; Measurements; Intervals [place]; Rate: 76 P: 21; ME: 132 QRS: -18; QRSD: 96 T: 15; QT: 392; QTc: 442; Interpretive Statements; SINUS RHYTHM; LEFTWARD AXIS; NONSPECIFIC ST T WAVE CHANGES; ; CW 02/20/16 RATE DECREASED; Electronically Signed On 08-19-2016 6:29:28 EST by Ihsan Mckinley; Radiology Order: Chest, 1 View Test: Chest, 1 View REASON FOR EXAMINATION: sob,cp; AP PORTABLE CHEST: 08/18/2016.; ; Clinical history: Dyspnea, chest pain.; ; Comparison: 06/01/2016 chest x-ray, portable chest 02/20/2016.; ; Lungs are well inflated without infiltrate, effusion, atelectasis. Heart not; enlarged for portable technique. There is no vascular redistribution or edema.; The airway and aorta unremarkable. No free air under the diaphragm. No apical; pneumothorax.; ; Impression:; ; 1. 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 18:02 Discharge Assessment: patient administered narcotics - yes. Pt provided with safe jjr discharge. The following High Risk Discharge criteria are identified: None. Discharged to home ambulatory, with family. Condition: stable. Discharge instructions given to patient, Instructed on discharge instructions, follow up and referral plans. Demonstrated understanding of instructions. No special radiology studies were completed. Property sent home with patient. 18:03 Patient left the ED. jjr Signatures: Dispatcher [employer] EDOH Ihsan Mckinley MD MD ml Murray, Denise, Head Bone Grinder Unit deg Emmanuelle Cota, Reg Reg gb Gustavo Stone, Reg Reg kf3 Claudia Reagan, RN RN jjr Americo Mcdonnell js11 Ashia Carlson Joseph, FEATURE WRITER FEATURE WRITER d Sweta Glasgow, Reg Reg ks16 Cierra Christensen Corrections: (The following items were deleted from the chart) 14:05 13:47 Presenting complaint: Patient states: night sweats the past 2 nights, heaviness jjr to sternal and left anterior chest constant since 0900 this morning, reports vertigo and HELMS developing PLATE MOUNTER jjr Chart Complete MTDD
== END 2016-08-18 18:03 | disposition home or self-care (01) ==
LOC: M ED 13:40
DX: R06.00 Dyspnea, unspecified (principal); R07.9 Chest pain, unspecified; J45.909 Unspecified asthma, uncomplicated; G71.19 Other specified myotonic disorders; G62.9 Polyneuropathy, unspecified; R42 Dizziness and giddiness; G96.0 Cerebrospinal fluid leak; Z79.899 Other long term (current) drug therapy; Z88.8 Allergy status to other drugs, medicaments and biological substances; Z88.1 Allergy status to other antibiotic agents; Z88.5 Allergy status to narcotic agent; Z91.013 Allergy to seafood; Z91.011 Allergy to milk products; Z91.010 Allergy to peanuts
CPT/HCPCS: 36415; 71010; 80048; 82550; 82553; 85025; 93005; 93041; 94640; 96374; 96375; 99284; J1170; J2405

== ENCOUNTER 2016-08-24 22:39 | Emergency (ER) | payer OTHER ==
[2016-08-24] MEDS ORDERED: KETOROLAC 30 MG/ML VIAL (J1885) As Ordered ONE (23:28)
[2016-08-24] MEDS ORDERED: ONDANSETRON 4MG/2ML VIAL (J2405) As Ordered ONE (23:28)
[2016-08-24 23:29] LABS: BASO % 0.4 % (0.0-1.0); EOS # 0.2 K/mm3 (0.0-0.50); EOS % 2.3 % (0.0-3.0); LARGE UNSTAINED CELL # 0.1 K/mm3 (0.0-0.4); LARGE UNSTAINED CELL % 1.1 % (0.0-4.0); LYMPH # 0.6 K/mm3 (1.5-4.5); LYMPH % 6.1 % (24.0-44.0); MEAN CORPUSCULAR HEMOGLOBIN 27.4 pg (27.0-33.0); MEAN CORPUSCULAR VOLUME 80.6 fl (80.0-96.0); MONO # 0.6 K/mm3 (0.0-0.8); MONO % 6.9 % (0.0-5.0); NEUTROPHILS # 7.3 K/mm3 (1.8-7.7); NEUTROPHILS % 83.3 % (36.0-66.0); PLATELET COUNT, AUTOMATED 271 k/mm3 (150-450); RED CELL DISTRIBUTION WIDTH 15.1 % (11.5-14.5); WHITE BLOOD COUNT 8.7 K/mm3 (4.0-10.0)
[2016-08-24 23:41] LABS: ALBUMIN 3.5 GM/DL (3.2-5.2); ALBUMIN/GLOBULIN RATIO 0.81 (1.00-1.93); ALKALINE PHOSPHATASE 126 U/L (45-117); ALT/SGPT 20 U/L (12-78); AMYLASE 43 U/L (25-115); ANION GAP 9 MEQ/L (8-16); AST/SGOT 18 U/L (15-37); BILIRUBIN,DIRECT < 0.1 MG/DL (0.0-0.2); BILIRUBIN,TOTAL 0.4 MG/DL (0.2-1.0); BLOOD UREA NITROGEN 9 MG/DL (7-18); CALCIUM LEVEL 8.6 MG/DL (8.5-10.1); CARBON DIOXIDE LEVEL 25 MEQ/L (21-32); CHLORIDE LEVEL 105 MEQ/L (98-107); CREATININE FOR GFR 1.14 MG/DL (0.55-1.02); GLOMERULAR FILTRATION RATE 54.9 (>58); GLUCOSE, FASTING 93 MG/DL (70-105); POTASSIUM SERUM 3.5 MEQ/L (3.5-5.1); SODIUM LEVEL 139 MEQ/L (136-145); TOTAL PROTEIN 7.8 GM/DL (6.4-8.2)
[2016-08-25] MEDS ORDERED: OSELTAMIVIR PHOSPHATE 75 MG CAP (TAMIFLU) As Ordered ONE (01:45)
--- NOTE | 2016-08-25 02:05 | EDDOCDS ---
Physician Documentation [facility] Name: Amber Duff Age: 46 yrs Sex: Female : 1970 Arrival Date: 08/24/2016 Time: 22:39 Bed 17 Private MD: Disposition: 08/25/16 01:43 Discharged to Home/Self Care. Impression: Influenza due to identified novel influenza A virus with other respiratory manifestations. - Condition is Stable. - Discharge Instructions: Influenza, Adult, Influenza, Adult, [id number]. - Prescriptions for Tamiflu 75 mg Oral Capsule - take 1 capsule by ORAL route every 12 hours for 5 days; 10 capsule. - Medication Reconciliation, Local Pharmacy Hours form. - Follow up: MAYA Salgado; When: 2 - 3 days; Reason: Continuance of care. - Problem is an acute exacerbation. - Symptoms have improved. Historical: - Allergies: Cipro PO; Clindamycin; Doxycycline; Erythrocin; Erythromycin; IODINEIODINE CONTAINING; lactose (bulk); Morphine; Peanut; seafood; Vagisil; glue on bandaids; - Home Meds: 1. Cymbalta 60 mg Oral cpDR 1 cap once daily 2. gabapentin 1200mg Oral tab 3 times per day 3. magnesium oxide 400 mg Oral tab twice a day 4. meclizine 25 mg Oral tab 1 tab tid prn 5. naproxen 500 mg Oral tab 1 tab 2 times per day 6. tizanidine 6 mg oral cap 1 cap 3 times per day 7. Zofran (as hydrochloride) 4 mg Oral tab 2 tabs Q8H PRN 8. prednisone 30 mg Oral tab 1 tab once daily 9. Tylenol 325 mg Oral tab 2 tabs every 4-6 hours (Last dose: 08/24/2016 19:00) - PMHx: Asthma; Chronic CSF leak; Levon's disease; peripheral neuropathy; Vertigo; stiffman syndrome; - PSHx: Tubal ligation; Rhinoplasty; Tonsillectomy; varicose veins; Hysterectomy; Sinus Surgery; left shoulder and right hip surgeries; - Social history: Smoking status: Patient states was never smoker of tobacco. No barriers to communication noted, The patient speaks fluent Eritrean, Speaks appropriately for age. - Family history: Not pertinent. - : The pt / caregiver states he / she is not on anticoagulants. Home medication list is obtained from the patient. - Exposure Risk Screening:: None identified. RN HEMO DIALYSIS: 08/24 22:54 LMP N/A - Hysterectomy ko2 Vital Signs: 22:54 BP 107 / 57; Pulse 107; Resp 20; Temp 100.9(O); Pulse Ox 98% ; Weight 111.13 kg / 245 ko2 lbs; Height 5 ft. 9 in. (175.26 cm); Pain 7/10; 08/25 00:56 Temp 100(O); ko2 02:01 BP 129 / 53; Pulse 72; Resp 18; Temp 100.1; Pulse Ox 100% ; Pain 6/10; ko2 08/24 22:54 Body Mass Index 36.18 (111.13 kg, 175.26 cm) ko2 MDM: 08/24 23:17 -Blood Culture (Adults Only), peripheral from different site, or from device/port/PICC mm11 etc. if present ordered. 23:17 IV Saline Lock ordered. mm11 23:17 Undress patient appropriately for examination ordered. mm11 23:17 NS 0.9% 1000 ml IV at bolus once ordered. mm11 23:17 Ondansetron 4 mg IVP once ordered. mm11 23:17 ketorolac 30 mg IVP once ordered. mm11 23:19 Amylase Ordered. EDMS 23:19 Basic Metabolic Profile Ordered. EDMS 23:19 CBC with Diff Ordered. EDMS 23:19 Lipase Ordered. EDMS 23:19 Liver Profile Ordered. EDMS 23:19 -Blood Culture Ordered. EDMS 23:19 -Influenza A&B Rapid Antigen - Nose Ordered. EDMS 23:19 Chest, 2 View (pa\E\lat) Ordered. EDMS 23:19 NOTHING BY MOUTH+DIET ordered. EDMS 23:32 -Blood Culture (Adults Only), peripheral from different site, or from device/port/PICC ml3 etc. if present complete. 23:32 BLOOD CULTURES Ordered. EDMS 08/25 00:00 Basic Metabolic Profile Reviewed. mm11 00:00 CBC with Diff Reviewed. mm11 00:00 Liver Profile Reviewed. mm11 00:00 Amylase Reviewed. mm11 00:00 Lipase Reviewed. mm11 01:06 Financial registration complete. hs2 01:20 -Influenza A&B Rapid Antigen - Nose Reviewed. mm11 01:42 Oseltamivir 75 mg PO once ordered. mm11 Administered Medications: 08/24 23:44 Drug: Ondansetron 4 mg [ondansetron HCl 2 mg/mL intravenous solution (2 mL)] Route: ko2 IVP; Site: left forearm; 23:44 Drug: ketorolac 30 mg [ketorolac 30 mg/mL (1 mL) injection solution (1 mL)] Route: IVP; ko2 Site: left forearm; 23:45 Drug: NS 0.9% 1000 ml [sodium chloride 0.9 % intravenous solution] Route: IV; Rate: ko2 bolus; Site: left forearm; 08/25 02:01 Drug: Oseltamivir 75 mg [oseltamivir 75 mg capsule (1 caps)] Route: PO; ko2 Signatures: Dispatcher [employer] EDKamini Mondragon, Tank Car Mechanic Unit ml3 Dany Moya DO DO mm11 Gay Gunderson RN RN ko2 Yana Garza, Reg Reg hs2 MTDD
--- NOTE | 2016-08-25 02:05 | EDDOCDS ---
Nurse's Notes [facility] Name: Amber Duff Age: 46 yrs Sex: Female : 1970 Arrival Date: 08/24/2016 Time: 22:39 Bed 17 Private MD: Diagnosis: Influenza due to identified novel influenza A virus with other respiratory manifestations Presentation: 08/24 22:46 Presenting complaint: EMS states: Started feeling weak, dizzy, nausea and hot at 10 am ko2 this morning. Has been unable to \E\keep any fluids or food down today. There has been sick family members in the household with bronchitis and pneumonia. The last date and time the patient was known to be well was was at 10:00 on August 24, 2016. An acute neurological deficit is present. The patients blood glucose was checked before arriving to the hospital and was found to be normal. Suicide/Homicide risk assessment- the patient denies having any suicidal and/or homicidal ideations and does not present with any other emotional, behavioral or mental health complaints. Transition of care: patient was not received from another setting of care. Care prior to arrival: See EMS report. Medications administered prior to arrival: Zofran 4 mg Saline lock initiated. Glucose check. 100. 22:46 Acuity: HANS Level 3 ko2 22:46 Method Of Arrival: Ambulance ko2 22:56 Status: The patient is a dependent. ko2 23:07 Adult Sepsis Screening: The patient does not have new or worsening altered mentation. ko2 Patient's respiratory rate is less than 22. Systolic blood pressure is greater than 100. Patient has a qSOFA score of 0- Negative Sepsis Screen. Triage Assessment: 23:08 The onset of the patients symptoms was more than three hours ago. General: Appears ko2 uncomfortable, Behavior is appropriate for age, cooperative. Pain: Location: head Pain currently is 7 out of 10 on a pain scale. HIV screening NA for this visit Offered previously. The patient is triaged at the bedside. See Assessment in Nurses Notes section of ED record. Neurological: Level of Consciousness is awake, alert, Oriented to person, place, time. Cardiovascular: Heart tones S1 S2 present. Respiratory: Airway is patent Respiratory effort is even, unlabored, Reports cough that is non-productive. GI: Abdomen is non- distended Bowel sounds present X 4 quads. Reports nausea, vomiting. Derm: Skin is normal. 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 Cymbalta 60 mg Oral cpDR 1 cap once daily 2. gabapentin 1200mg Oral tab 3 times per day 3. magnesium oxide 400 mg Oral tab twice a day 4. meclizine 25 mg Oral tab 1 tab tid prn 5. naproxen 500 mg Oral tab 1 tab 2 times per day 6. tizanidine 6 mg oral cap 1 cap 3 times per day 7. Zofran (as hydrochloride) 4 mg Oral tab 2 tabs Q8H PRN 8. prednisone 30 mg Oral tab 1 tab once daily 9. Tylenol 325 mg Oral tab 2 tabs every 4-6 hours (Last dose: 08/24/2016 19:00) - PMHx: Asthma; Chronic CSF leak; Levon's disease; peripheral neuropathy; Vertigo; stiffman syndrome; - PSHx: Tubal ligation; Rhinoplasty; Tonsillectomy; varicose veins; Hysterectomy; Sinus Surgery; left shoulder and right hip surgeries; - Social history: Smoking status: Patient states was never smoker of tobacco. No barriers to communication noted, The patient speaks fluent Polish, Speaks appropriately for age. - Family history: Not pertinent. - : The pt / caregiver states he / she is not on anticoagulants. Home medication list is obtained from the patient. - Exposure Risk Screening:: None identified. Screenin/18 00:01 Screening information is obtained from the patient. Fall risk: No risks identified. ko2 Assistance ADL's: requires no assistance with activities of daily living. Abuse/DV Screen: The patient / caregiver reports he/she is: not in a situation that causes fear, pain or injury. Nutritional screening: No deficits noted. Advance Directives: Currently, there is no health care proxy. There is no active DNR order. There is no living will. There is no Power of Aerial Survey Technician. home support is adequate. Assessment: 08/24 22:45 General: see triage assessment. ko2 23:48 General: Appears in no apparent distress, comfortable, Behavior is appropriate for age, ko2 cooperative. Neurological: Level of Consciousness is awake, alert. Respiratory: Airway is patent Respiratory effort is even, unlabored. Derm: Skin is normal. 02 00:55 General: Appears in no apparent distress, Behavior is appropriate for age, cooperative. ko2 Neurological: Level of Consciousness is awake, alert. Respiratory: Airway is patent Respiratory effort is even, unlabored. Derm: Skin is normal. 02:02 General: Appears in no apparent distress, comfortable, Behavior is appropriate for age, ko2 cooperative. Pain: Location: all over. Neurological: Level of Consciousness is awake, alert. Respiratory: Airway is patent Respiratory effort is even, unlabored. Derm: Skin is normal. Vital Signs: 08/24 22:54 BP 107 / 57; Pulse 107; Resp 20; Temp 100.9(O); Pulse Ox 98% ; Weight 111.13 kg; Height ko2 5 ft. 9 in. (175.26 cm); Pain 7/10; 08/25 00:56 Temp 100(O); ko2 02:01 BP 129 / 53; Pulse 72; Resp 18; Temp 100.1; Pulse Ox 100% ; Pain 6/10; ko2 08/24 22:54 Body Mass Index 36.18 (111.13 kg, 175.26 cm) ko2 Vitals: 08/24 22:54 Glucose Measurement D-stick done by EMS. Log In Time N/A - ambulance arrival. ko2 ED Course: 22:40 Patient visited by Kamini Stewart, Unindentured Apprentice. ml3 22:40 Patient moved to [facility] ml3 22:41 Gay Gunderson,RN is Primary Nurse. ml3 22:41 Patient moved to ml3 22:49 Triage Initiated ko2 23:05 Dany Moya DO is Attending Physician. mm11 23:07 Patient visited by Dany Moya DO. mm11 23:10 Maintain field IV. Dressing intact. Good blood return noted. Site clean & dry. Gauge & ko2 site: 20 gauge left FA. 23:16 Patient visited by Dany Moya DO. mm11 23:21 -Blood Culture Sent. ko2 23:21 Amylase Sent. ko2 23:21 Basic Metabolic Profile Sent. ko2 23:21 CBC with Diff Sent. ko2 23:21 Lipase Sent. ko2 23:21 Liver Profile Sent. ko2 23:47 Patient visited by Gay Gunderson RN. ko2 08/25 00:02 The patient / caregiver is instructed regarding the plan of care and ED course. ko2 00:21 Patient visited by Dany Moya DO. mm11 00:57 Patient visited by Gay Gunderson RN. ko2 01:43 Damian [facility] is Referral Physician. mm11 02:03 Discontinued lock intact, bleeding controlled, pressure dressing applied, No ko2 redness/swelling at site. No procedures done that require assistance. Administered Medications: 08/24 23:44 Drug: Ondansetron 4 mg [ondansetron HCl 2 mg/mL intravenous solution (2 mL)] Route: ko2 IVP; Site: left forearm; 23:44 Drug: ketorolac 30 mg [ketorolac 30 mg/mL (1 mL) injection solution (1 mL)] Route: IVP; ko2 Site: left forearm; 23:45 Drug: NS 0.9% 1000 ml [sodium chloride 0.9 % intravenous solution] Route: IV; Rate: ko2 bolus; Site: left forearm; 08/25 02:01 Drug: Oseltamivir 75 mg [oseltamivir 75 mg capsule (1 caps)] Route: PO; ko2 Order Results: Lab Order: Amylase; SPEC'M 08/24/16 23:03 Test: AMYLASE; Value: 43; Range: 25-115; Units: U/L; Status: F Lab Order: Basic Metabolic Profile; SPEC'M 08/24/16 23:03 Test: GLUCOSE, FASTING; Value: 93; Range: 70-105; Units: MG/DL; Status: F Test: BLOOD UREA NITROGEN; Value: 9; Range: 7-18; Units: MG/DL; Status: F Test: CREATININE FOR GFR; Value: 1.14; Range: 0.55-1.02; Abnormal: Above high normal; Units: MG/DL; Status: F Test: GLOMERULAR FILTRATION RATE; Value: 54.9; Range: >58; Abnormal: Below low normal; Status: F Test: SODIUM LEVEL; Value: 139; Range: 136-145; Units: MEQ/L; Status: F Test: POTASSIUM SERUM; Value: 3.5; Range: 3.5-5.1; Units: MEQ/L; Status: F Test: CHLORIDE LEVEL; Value: 105; Range: 98-107; Units: MEQ/L; Status: F Test: CARBON DIOXIDE LEVEL; Value: 25; Range: 21-32; Units: MEQ/L; Status: F Test: ANION GAP; Value: 9; Range: 8-16; Units: MEQ/L; Status: F Test: CALCIUM LEVEL; Value: 8.6; Range: 8.5-10.1; Units: MG/DL; Status: F Test Note: ; Units are mL/min/1.73 m2 Chronic Kidney Disease Staging per NKF: Stage I & II GFR >=60 Normal to Mildly Decreased Stage III GFR 30-59 Moderately Decreased Stage IV GFR 15-29 Severely Decreased Stage V GFR <15 Very Little GFR Left ESRD GFR <15 on VEHICLE AND EQUIPMENT CLEANER Lab Order: CBC with Diff; SPEC'M 08/24/16 23:03 Test: WHITE BLOOD COUNT; Value: 8.7; Range: 4.0-10.0; Units: K/mm3; Status: F Test: RED BLOOD COUNT; Value: 4.99; Range: 4.00-5.40; Units: M/mm3; Status: F Test: HEMOGLOBIN; Value: 13.7; Range: 12.0-16.0; Units: g/dl; Status: F Test: HEMATOCRIT; Value: 40.2; Range: 36.0-47.0; Units: %; Status: F Test: MEAN CORPUSCULAR VOLUME; Value: 80.6; Range: 80.0-96.0; Units: fl; Status: F Test: MEAN CORPUSCULAR HEMOGLOBIN; Value: 27.4; Range: 27.0-33.0; Units: pg; Status: F Test: MEAN CORPUSCULAR HGB CONC; Value: 34.0; Range: 32.0-36.5; Units: g/dl; Status: F Test: RED CELL DISTRIBUTION WIDTH; Value: 15.1; Range: 11.5-14.5; Abnormal: Above high normal; Units: %; Status: F Test: PLATELET COUNT, AUTOMATED; Value: 271; Range: 150-450; Units: k/mm3; Status: F Test: NEUTROPHILS %; Value: 83.3; Range: 36.0-66.0; Abnormal: Above high normal; Units: %; Status: F Test: LYMPH %; Value: 6.1; Range: 24.0-44.0; Abnormal: Below low normal; Units: %; Status: F Test: MONO %; Value: 6.9; Range: 0.0-5.0; Abnormal: Above high normal; Units: %; Status: F Test: EOS %; Value: 2.3; Range: 0.0-3.0; Units: %; Status: F Test: BASO %; Value: 0.4; Range: 0.0-1.0; Units: %; Status: F Test: LARGE UNSTAINED CELL %; Value: 1.1; Range: 0.0-4.0; Units: %; Status: F Test: NEUTROPHILS #; Value: 7.3; Range: 1.8-7.7; Units: K/mm3; Status: F Test: LYMPH #; Value: 0.6; Range: 1.5-4.5; Abnormal: Below low normal; Units: K/mm3; Status: F Test: MONO #; Value: 0.6; Range: 0.0-0.8; Units: K/mm3; Status: F Test: EOS #; Value: 0.2; Range: 0.0-0.50; Units: K/mm3; Status: F Test: BASO #; Value: 0.0; Range: 0.0-0.2; Units: K/mm3; Status: F Test: LARGE UNSTAINED CELL #; Value: 0.1; Range: 0.0-0.4; Units: K/mm3; Status: F Lab Order: Lipase; SPEC' 08/24/16 23:03 Test: LIPASE; Value: 76; Range: 73-393; Units: U/L; Status: F Lab Order: Liver Profile; [facility]' 08/24/16 23:03 Test: AST/SGOT; Value: 18; Range: 15-37; Units: U/L; Status: F Test: ALT/SGPT; Value: 20; Range: 12-78; Units: U/L; Status: F Test: ALKALINE PHOSPHATASE; Value: 126; Range: 45-117; Abnormal: Above high normal; Units: U/L; Status: F Test: BILIRUBIN,TOTAL; Value: 0.4; Range: 0.2-1.0; Units: MG/DL; Status: F Test: BILIRUBIN,DIRECT; Value: < 0.1; Range: 0.0-0.2; Units: MG/DL; Status: F Test: TOTAL PROTEIN; Value: 7.8; Range: 6.4-8.2; Units: GM/DL; Status: F Test: ALBUMIN; Value: 3.5; Range: 3.2-5.2; Units: GM/DL; Status: F Test: ALBUMIN/GLOBULIN RATIO; Value: 0.81; Range: 1.00-1.93; Abnormal: Below low normal; Status: F Lab Order: -Influenza A&B Rapid Antigen - Nose; SPEC'M 08/24/16 23:40 Test: INFLUENZA A RAPID SCR by ICA; Value: INFLUENZA A RESULTS POSITIVE; Abnormal: Abnormal; Status: F Test: INFLUENZA A RAPID SCR by ICA; Value: Comments:; Status: F Test: INFLUENZA B RAPID SCR by ICA; Value: INFLUENZA B RESULTS NEGATIVE; Status: F Test Note: ; The Influenza test is a direct rapid immunoassay for the qualitative detection of Influenza viral antigen. Cell culture (Viral Culture) testing should be considered to confirm NEGATIVE results and to assist in detecting other viruses that can provide similar clinical symptoms. Please contact the lab within 24 hours ([phone]) if confirmatory testing is desired. Outcome: 01:43 Discharge ordered by Provider. mm11 02:03 Discharge Assessment: Patient awake, alert and oriented x 3. No cognitive and/or ko2 functional deficits noted. Patient verbalized understanding of disposition instructions. patient administered narcotics - no. The following High Risk Discharge criteria are identified: None. Discharged to home ambulatory. Condition: stable. Discharge instructions given to patient, Instructed on discharge instructions, follow up and referral plans. medication usage, Demonstrated understanding of instructions, medications, Pt was receptive of discharge instructions/ teaching. Prescriptions given X 1. No special radiology studies were completed. Property sent home with patient. 02:04 Patient left the ED. ko2 Signatures: Kamini Stewart, Unindentured Apprentice Unit ml3 Dany Moya DO DO mm11 Gay Gunderson RN RN ko2 Corrections: (The following items were deleted from the chart) 02/17 22:49 22:43 Presenting complaint: ko2 ko2 22:56 22:46 Status: Patient is not a supervisor volunteer services or dependent. ko2 ko2 23:08 22:46 Presenting complaint: EMS states: Started feeling weak, dizzy, nausea and hot at ko2 10 am this morning. Has been unable to \E\keep any fluids or food down today. There has been sick family members in the household ko2 MTDD
--- NOTE | 2016-08-25 08:14 | REP ---
Clinical: Acute cough . Comparison: 08/18/2016 . Technique: PA and lateral. Findings: The mediastinum and cardiac silhouette are normal. The lung garcia are clear and without acute consolidation, effusion, or pneumothorax. The skeletal structures are intact and normal. Impression: 1. No acute cardiopulmonary process. Signed by Daren Chung MD 08/25/2016 08:06 A
--- NOTE | 2016-08-27 03:05 | EDDOCDS ---
Physician Documentation [facility] Name: Amber Duff Age: 46 yrs Sex: Female : 1970 Arrival Date: 08/24/2016 Time: 22:39 Bed 17 Private MD: Disposition: 08/25/16 01:43 Discharged to Home/Self Care. Impression: Influenza due to identified novel influenza A virus with other respiratory manifestations. - Condition is Stable. - Discharge Instructions: Influenza, Adult, Influenza, Adult, [id number]. - Prescriptions for Tamiflu 75 mg Oral Capsule - take 1 capsule by ORAL route every 12 hours for 5 days; 10 capsule. - Medication Reconciliation, Local Pharmacy Hours form. - Follow up: MAYA Salgado; When: 2 - 3 days; Reason: Continuance of care. - Problem is an acute exacerbation. - Symptoms have improved. Historical: - Allergies: Cipro PO; Clindamycin; Doxycycline; Erythrocin; Erythromycin; IODINEIODINE CONTAINING; lactose (bulk); Morphine; Peanut; seafood; Vagisil; glue on bandaids; - Home Meds: 1. Cymbalta 60 mg Oral cpDR 1 cap once daily 2. gabapentin 1200mg Oral tab 3 times per day 3. magnesium oxide 400 mg Oral tab twice a day 4. meclizine 25 mg Oral tab 1 tab tid prn 5. naproxen 500 mg Oral tab 1 tab 2 times per day 6. tizanidine 6 mg oral cap 1 cap 3 times per day 7. Zofran (as hydrochloride) 4 mg Oral tab 2 tabs Q8H PRN 8. prednisone 30 mg Oral tab 1 tab once daily 9. Tylenol 325 mg Oral tab 2 tabs every 4-6 hours (Last dose: 08/24/2016 19:00) - PMHx: Asthma; Chronic CSF leak; Levon's disease; peripheral neuropathy; Vertigo; stiffman syndrome; - PSHx: Tubal ligation; Rhinoplasty; Tonsillectomy; varicose veins; Hysterectomy; Sinus Surgery; left shoulder and right hip surgeries; - Social history: Smoking status: Patient states was never smoker of tobacco. No barriers to communication noted, The patient speaks fluent [place], Speaks appropriately for age. - Family history: Not pertinent. - : The pt / caregiver states he / she is not on anticoagulants. Home medication list is obtained from the patient. - Exposure Risk Screening:: None identified. 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 9 in. (175.26 cm); Pain 7/10; 08/25 00:56 Temp 100(O); ko2 02:01 BP 129 / 53; Pulse 72; Resp 18; Temp 100.1; Pulse Ox 100% ; Pain 6/10; ko2 08/24 22:54 Body Mass Index 36.18 (111.13 kg, 175.26 cm) ko2 MDM: 08/24 23:17 -Blood Culture (Adults Only), peripheral from different site, or from device/port/PICC mm11 etc. if present ordered. 23:17 IV Saline Lock ordered. mm11 23:17 Undress patient appropriately for examination ordered. mm11 23:17 NS 0.9% 1000 ml IV at bolus once ordered. mm11 23:17 Ondansetron 4 mg IVP once ordered. mm11 23:17 ketorolac 30 mg IVP once ordered. mm11 23:19 Amylase Ordered. EDMS 23:19 Basic Metabolic Profile Ordered. EDMS 23:19 CBC with Diff Ordered. EDMS 23:19 Lipase Ordered. EDMS 23:19 Liver Profile Ordered. EDMS 23:19 -Blood Culture Ordered. EDMS 23:19 -Influenza A&B Rapid Antigen - Nose Ordered. EDMS 23:19 Chest, 2 View (pa\E\lat) Ordered. EDMS 23:19 NOTHING BY MOUTH+DIET ordered. EDMS 23:32 -Blood Culture (Adults Only), peripheral from different site, or from device/port/PICC ml3 etc. if present complete. 23:32 BLOOD CULTURES Ordered. EDMS 08/25 00:00 Basic Metabolic Profile Reviewed. mm11 00:00 CBC with Diff Reviewed. mm11 00:00 Liver Profile Reviewed. mm11 00:00 Amylase Reviewed. mm11 00:00 Lipase Reviewed. mm11 01:06 Financial registration complete. hs2 01:20 -Influenza A&B Rapid Antigen - Nose Reviewed. mm11 01:42 Oseltamivir 75 mg PO once ordered. mm11 03:44 [facility] Payment Agreement was scanned into Rithm[employer] and attached to record. [facility] 11:30 T-Sheet-- Draft Copy was scanned into Rithm[employer] and attached to record. gb 15:03 PCR was scanned into [employer]ithm[employer] and attached to record. gb Administered Medications: 08/24 23:44 Drug: Ondansetron 4 mg [ondansetron HCl 2 mg/mL intravenous solution (2 mL)] Route: ko2 IVP; Site: left forearm; 23:44 Drug: ketorolac 30 mg [ketorolac 30 mg/mL (1 mL) injection solution (1 mL)] Route: IVP; ko2 Site: left forearm; 23:45 Drug: NS 0.9% 1000 ml [sodium chloride 0.9 % intravenous solution] Route: IV; Rate: ko2 bolus; Site: left forearm; 08/25 02:01 Drug: Oseltamivir 75 mg [oseltamivir 75 mg capsule (1 caps)] Route: PO; ko2 Signatures: Dispatcher [employer] EDMS Emmanuelle Cota, Reg Reg gb Kamini Stewart, Drill Doctor Unit ml3 Dany Moya, DO DO mm11 Gay Gunderson RN RN caleb2 Sheron Oscar [facility] Yana Garza, Reg Reg hs2 The chart was reviewed and I authenticate all verbal orders and agree with the evaluation and treatment provided.Attachments: 03:44 [facility] Payment Agreement [facility] 11:30 T-Sheet-- Draft Copy Chart Complete MTDD
--- NOTE | 2016-08-27 03:05 | EDDOCDS ---
Nurse's Notes [facility] Name: Amber Duff Age: 46 yrs Sex: Female : 1970 Arrival Date: 08/24/2016 Time: 22:39 Bed 17 Private MD: Diagnosis: Influenza due to identified novel influenza A virus with other respiratory manifestations Presentation: 08/24 22:46 Presenting complaint: EMS states: Started feeling weak, dizzy, nausea and hot at 10 am ko2 this morning. Has been unable to \E\keep any fluids or food down today. There has been sick family members in the household with bronchitis and pneumonia. The last date and time the patient was known to be well was was at 10:00 on August 24, 2016. An acute neurological deficit is present. The patients blood glucose was checked before arriving to the hospital and was found to be normal. Suicide/Homicide risk assessment- the patient denies having any suicidal and/or homicidal ideations and does not present with any other emotional, behavioral or mental health complaints. Transition of care: patient was not received from another setting of care. Care prior to arrival: See EMS report. Medications administered prior to arrival: Zofran 4 mg Saline lock initiated. Glucose check. 100. 22:46 Acuity: HANS Level 3 ko2 22:46 Method Of Arrival: Ambulance ko2 22:56 Status: The patient is a dependent. ko2 23:07 Adult Sepsis Screening: The patient does not have new or worsening altered mentation. ko2 Patient's respiratory rate is less than 22. Systolic blood pressure is greater than 100. Patient has a qSOFA score of 0- Negative Sepsis Screen. Triage Assessment: 23:08 The onset of the patients symptoms was more than three hours ago. General: Appears ko2 uncomfortable, Behavior is appropriate for age, cooperative. Pain: Location: head Pain currently is 7 out of 10 on a pain scale. HIV screening NA for this visit Offered previously. The patient is triaged at the bedside. See Assessment in Nurses Notes section of ED record. Neurological: Level of Consciousness is awake, alert, Oriented to person, place, time. Cardiovascular: Heart tones S1 S2 present. Respiratory: Airway is patent Respiratory effort is even, unlabored, Reports cough that is non-productive. GI: Abdomen is non- distended Bowel sounds present X 4 quads. Reports nausea, vomiting. Derm: Skin is normal. 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 Cymbalta 60 mg Oral cpDR 1 cap once daily 2. gabapentin 1200mg Oral tab 3 times per day 3. magnesium oxide 400 mg Oral tab twice a day 4. meclizine 25 mg Oral tab 1 tab tid prn 5. naproxen 500 mg Oral tab 1 tab 2 times per day 6. tizanidine 6 mg oral cap 1 cap 3 times per day 7. Zofran (as hydrochloride) 4 mg Oral tab 2 tabs Q8H PRN 8. prednisone 30 mg Oral tab 1 tab once daily 9. Tylenol 325 mg Oral tab 2 tabs every 4-6 hours (Last dose: 08/24/2016 19:00) - PMHx: Asthma; Chronic CSF leak; Levon's disease; peripheral neuropathy; Vertigo; stiffman syndrome; - PSHx: Tubal ligation; Rhinoplasty; Tonsillectomy; varicose veins; Hysterectomy; Sinus Surgery; left shoulder and right hip surgeries; - Social history: Smoking status: Patient states was never smoker of tobacco. No barriers to communication noted, The patient speaks fluent Bulgarian, Speaks appropriately for age. - Family history: Not pertinent. - : The pt / caregiver states he / she is not on anticoagulants. Home medication list is obtained from the patient. - Exposure Risk Screening:: None identified. Screenin/18 00:01 Screening information is obtained from the patient. Fall risk: No risks identified. ko2 Assistance ADL's: requires no assistance with activities of daily living. Abuse/DV Screen: The patient / caregiver reports he/she is: not in a situation that causes fear, pain or injury. Nutritional screening: No deficits noted. Advance Directives: Currently, there is no health care proxy. There is no active DNR order. There is no living will. There is no Power of Applications Engineer Manufacturing. home support is adequate. Assessment: 08/24 22:45 General: see triage assessment. ko2 23:48 General: Appears in no apparent distress, comfortable, Behavior is appropriate for age, ko2 cooperative. Neurological: Level of Consciousness is awake, alert. Respiratory: Airway is patent Respiratory effort is even, unlabored. Derm: Skin is normal. 02 00:55 General: Appears in no apparent distress, Behavior is appropriate for age, cooperative. ko2 Neurological: Level of Consciousness is awake, alert. Respiratory: Airway is patent Respiratory effort is even, unlabored. Derm: Skin is normal. 02:02 General: Appears in no apparent distress, comfortable, Behavior is appropriate for age, ko2 cooperative. Pain: Location: all over. Neurological: Level of Consciousness is awake, alert. Respiratory: Airway is patent Respiratory effort is even, unlabored. Derm: Skin is normal. Vital Signs: 08/24 22:54 BP 107 / 57; Pulse 107; Resp 20; Temp 100.9(O); Pulse Ox 98% ; Weight 111.13 kg; Height ko2 5 ft. 9 in. (175.26 cm); Pain 7/10; 08/25 00:56 Temp 100(O); ko2 02:01 BP 129 / 53; Pulse 72; Resp 18; Temp 100.1; Pulse Ox 100% ; Pain 6/10; ko2 08/24 22:54 Body Mass Index 36.18 (111.13 kg, 175.26 cm) ko2 Vitals: 08/24 22:54 Glucose Measurement D-stick done by EMS. Log In Time N/A - ambulance arrival. ko2 ED Course: 22:40 Patient visited by Kamini Stewart, Certified Health Education Specialist. ml3 22:40 Patient moved to [facility] ml3 22:41 Gay Gunderson,RN is Primary Nurse. ml3 22:41 Patient moved to ml3 22:49 Triage Initiated ko2 23:05 Dany Moya DO is Attending Physician. mm11 23:07 Patient visited by Dany Moya DO. mm11 23:10 Maintain field IV. Dressing intact. Good blood return noted. Site clean & dry. Gauge & ko2 site: 20 gauge left FA. 23:16 Patient visited by Dany Moya DO. mm11 23:21 -Blood Culture Sent. ko2 23:21 Amylase Sent. ko2 23:21 Basic Metabolic Profile Sent. ko2 23:21 CBC with Diff Sent. ko2 23:21 Lipase Sent. ko2 23:21 Liver Profile Sent. ko2 23:47 Patient visited by Gay Gunderson RN. ko2 08/25 00:02 The patient / caregiver is instructed regarding the plan of care and ED course. ko2 00:21 Patient visited by Dany Moya DO. mm11 00:57 Patient visited by Gay Gunderson RN. ko2 01:43 Damian [facility] [place] Referral Physician. mm11 02:03 Discontinued lock intact, bleeding controlled, pressure dressing applied, No ko2 redness/swelling at site. No procedures done that require assistance. 03:44 [facility] [place] was scanned into [employer] and attached to record. [facility] 08:45 Chest, 2 View (pa\E\lat) Returned. EDMS 11:30 T-Sheet-- Draft Copy was scanned into [employer] and attached to record. gb 15:03 PCR was scanned into [employer] and attached to record. gb Administered Medications: 08/24 23:44 Drug: Ondansetron 4 mg [ondansetron HCl 2 mg/mL intravenous solution (2 mL)] Route: ko2 IVP; Site: left forearm; 23:44 Drug: ketorolac 30 mg [ketorolac 30 mg/mL (1 mL) injection solution (1 mL)] Route: IVP; ko2 Site: left forearm; 23:45 Drug: NS 0.9% 1000 ml [sodium chloride 0.9 % intravenous solution] Route: IV; Rate: ko2 bolus; Site: left forearm; 08/25 02:01 Drug: Oseltamivir 75 mg [oseltamivir 75 mg capsule (1 caps)] Route: PO; ko2 Order Results: Lab Order: -Blood Culture; SPEC'M 08/24/16 23:03 Test: BLOOD CULTURE; Value: No growth after 24 hours . All specimens observed; Status: F Test: BLOOD CULTURE; Value: for 5 days. Results final at that time.; Status: F Test: BLOOD CULTURE; Value: No Growth after 48 hours. All Specimens observed; Status: F Test: BLOOD CULTURE; Value: for 7 days. Results final at that time.; Status: F Lab Order: Amylase; SPEC'M 08/24/16 23:03 Test: AMYLASE; Value: 43; Range: 25-115; Units: U/L; Status: F Lab Order: Basic Metabolic Profile; SPEC'M 08/24/16 23:03 Test: GLUCOSE, FASTING; Value: 93; Range: 70-105; Units: MG/DL; Status: F Test: BLOOD UREA NITROGEN; Value: 9; Range: 7-18; Units: MG/DL; Status: F Test: CREATININE FOR GFR; Value: 1.14; Range: 0.55-1.02; Abnormal: Above high normal; Units: MG/DL; Status: F Test: GLOMERULAR FILTRATION RATE; Value: 54.9; Range: >58; Abnormal: Below low normal; Status: F Test: SODIUM LEVEL; Value: 139; Range: 136-145; Units: MEQ/L; Status: F Test: POTASSIUM SERUM; Value: 3.5; Range: 3.5-5.1; Units: MEQ/L; Status: F Test: CHLORIDE LEVEL; Value: 105; Range: 98-107; Units: MEQ/L; Status: F Test: CARBON DIOXIDE LEVEL; Value: 25; Range: 21-32; Units: MEQ/L; Status: F Test: ANION GAP; Value: 9; Range: 8-16; Units: MEQ/L; Status: F Test: CALCIUM LEVEL; Value: 8.6; Range: 8.5-10.1; Units: MG/DL; Status: F Test Note: ; Units are mL/min/1.73 m2 Chronic Kidney Disease Staging per NKF: Stage I & II GFR >=60 Normal to Mildly Decreased Stage III GFR 30-59 Moderately Decreased Stage IV GFR 15-29 Severely Decreased Stage V GFR <15 Very Little GFR Left ESRD GFR <15 on POWER BENDER OPERATOR Lab Order: CBC with Diff; SPEC'M 08/24/16 23:03 Test: WHITE BLOOD COUNT; Value: 8.7; Range: 4.0-10.0; Units: K/mm3; Status: F Test: RED BLOOD COUNT; Value: 4.99; Range: 4.00-5.40; Units: M/mm3; Status: F Test: HEMOGLOBIN; Value: 13.7; Range: 12.0-16.0; Units: g/dl; Status: F Test: HEMATOCRIT; Value: 40.2; Range: 36.0-47.0; Units: %; Status: F Test: MEAN CORPUSCULAR VOLUME; Value: 80.6; Range: 80.0-96.0; Units: fl; Status: F Test: MEAN CORPUSCULAR HEMOGLOBIN; Value: 27.4; Range: 27.0-33.0; Units: pg; Status: F Test: MEAN CORPUSCULAR HGB CONC; Value: 34.0; Range: 32.0-36.5; Units: g/dl; Status: F Test: RED CELL DISTRIBUTION WIDTH; Value: 15.1; Range: 11.5-14.5; Abnormal: Above high normal; Units: %; Status: F Test: PLATELET COUNT, AUTOMATED; Value: 271; Range: 150-450; Units: k/mm3; Status: F Test: NEUTROPHILS %; Value: 83.3; Range: 36.0-66.0; Abnormal: Above high normal; Units: %; Status: F Test: LYMPH %; Value: 6.1; Range: 24.0-44.0; Abnormal: Below low normal; Units: %; Status: F Test: MONO %; Value: 6.9; Range: 0.0-5.0; Abnormal: Above high normal; Units: %; Status: F Test: EOS %; Value: 2.3; Range: 0.0-3.0; Units: %; Status: F Test: BASO %; Value: 0.4; Range: 0.0-1.0; Units: %; Status: F Test: LARGE UNSTAINED CELL %; Value: 1.1; Range: 0.0-4.0; Units: %; Status: F Test: NEUTROPHILS #; Value: 7.3; Range: 1.8-7.7; Units: K/mm3; Status: F Test: LYMPH #; Value: 0.6; Range: 1.5-4.5; Abnormal: Below low normal; Units: K/mm3; Status: F Test: MONO #; Value: 0.6; Range: 0.0-0.8; Units: K/mm3; Status: F Test: EOS #; Value: 0.2; Range: 0.0-0.50; Units: K/mm3; Status: F Test: BASO #; Value: 0.0; Range: 0.0-0.2; Units: K/mm3; Status: F Test: LARGE UNSTAINED CELL #; Value: 0.1; Range: 0.0-0.4; Units: K/mm3; Status: F Lab Order: Lipase; SPEC'M 08/24/16 23:03 Test: LIPASE; Value: 76; Range: 73-393; Units: U/L; Status: F Lab Order: Liver Profile; SPEC'M 08/24/16 23:03 Test: AST/SGOT; Value: 18; Range: 15-37; Units: U/L; Status: F Test: ALT/SGPT; Value: 20; Range: 12-78; Units: U/L; Status: F Test: ALKALINE PHOSPHATASE; Value: 126; Range: 45-117; Abnormal: Above high normal; Units: U/L; Status: F Test: BILIRUBIN,TOTAL; Value: 0.4; Range: 0.2-1.0; Units: MG/DL; Status: F Test: BILIRUBIN,DIRECT; Value: < 0.1; Range: 0.0-0.2; Units: MG/DL; Status: F Test: TOTAL PROTEIN; Value: 7.8; Range: 6.4-8.2; Units: GM/DL; Status: F Test: ALBUMIN; Value: 3.5; Range: 3.2-5.2; Units: GM/DL; Status: F Test: ALBUMIN/GLOBULIN RATIO; Value: 0.81; Range: 1.00-1.93; Abnormal: Below low normal; Status: F Lab Order: -Influenza A&B Rapid Antigen - Nose; SPEC'M 08/24/16 23:40 Test: INFLUENZA A RAPID SCR by ICA; Value: INFLUENZA A RESULTS POSITIVE; Abnormal: Abnormal; Status: F Test: INFLUENZA A RAPID SCR by ICA; Value: Comments:; Status: F Test: INFLUENZA B RAPID SCR by ICA; Value: INFLUENZA B RESULTS NEGATIVE; Status: F Test Note: ; The Influenza test is a direct rapid immunoassay for the qualitative detection of Influenza viral antigen. Cell culture (Viral Culture) testing should be considered to confirm NEGATIVE results and to assist in detecting other viruses that can provide similar clinical symptoms. Please contact the lab within 24 hours ([phone]) if confirmatory testing is desired. Lab Order: BLOOD CULTURES; SPEC'M 08/24/16 23:40 Test: BLOOD CULTURE; Value: No growth after 24 hours . All specimens observed; Status: F Test: BLOOD CULTURE; Value: for 5 days. Results final at that time.; Status: F Test: BLOOD CULTURE; Value: No Growth after 48 hours. All Specimens observed; Status: F Test: BLOOD CULTURE; Value: for 7 days. Results final at that time.; Status: F Radiology Order: Chest, 2 View (pa\E\lat) Test: Chest, 2 View (pa\E\lat) REASON FOR EXAMINATION: Cough; Clinical: Acute cough .; ; Comparison: 08/18/2016 .; ; Technique: PA and lateral.; ; Findings:; The mediastinum and cardiac silhouette are normal. The lung garcia are clear and; without acute consolidation, effusion, or pneumothorax. The skeletal structures; are intact and normal.; ; Impression:; 1. No acute cardiopulmonary process.; ; ; Signed by; Daren Chung MD 08/25/2016 08:06 A; Outcome: 01:43 Discharge ordered by Provider. mm11 02:03 Discharge Assessment: Patient awake, alert and oriented x 3. No cognitive and/or ko2 functional deficits noted. Patient verbalized understanding of disposition instructions. patient administered narcotics - no. The following High Risk Discharge criteria are identified: None. Discharged to home ambulatory. Condition: stable. Discharge instructions given to patient, Instructed on discharge instructions, follow up and referral plans. medication usage, Demonstrated understanding of instructions, medications, Pt was receptive of discharge instructions/ teaching. Prescriptions given X 1. No special radiology studies were completed. Property sent home with patient. 02:04 Patient left the ED. ko2 Signatures: Dispatcher [employer] EDMS Emmanuelle Cota, Reg Reg Ney Salmeronbeth, Certified Health Education Specialist Unit ml3 Dany Moya DO DO mm11 Gay Gunderson RN RN caleb2 Sheron Oscar [facility] Corrections: (The following items were deleted from the chart) 08/24 22:49 22:43 Presenting complaint: ko2 ko2 22:56 22:46 Status: Patient is not a field services analyst or dependent. ko2 ko2 23:08 22:46 Presenting complaint: EMS states: Started feeling weak, dizzy, nausea and hot at ko2 10 am this morning. Has been unable to \E\keep any fluids or food down today. There has been sick family members in the household ko2 Chart Complete MTDD
--- NOTE | 2016-08-27 03:05 | EDDOCDS ---
Physician Documentation [facility] Name: Amber Duff Age: 46 yrs Sex: Female : 1970 Arrival Date: 08/24/2016 Time: 22:39 Bed 17 Private MD: Disposition: 08/25/16 01:43 Discharged to Home/Self Care. Impression: Influenza due to identified novel influenza A virus with other respiratory manifestations. - Condition is Stable. - Discharge Instructions: Influenza, Adult, Influenza, Adult, [id number]. - Prescriptions for Tamiflu 75 mg Oral Capsule - take 1 capsule by ORAL route every 12 hours for 5 days; 10 capsule. - Medication Reconciliation, Local Pharmacy Hours form. - Follow up: MAYA Salgado; When: 2 - 3 days; Reason: Continuance of care. - Problem is an acute exacerbation. - Symptoms have improved. Historical: - Allergies: Cipro PO; Clindamycin; Doxycycline; Erythrocin; Erythromycin; IODINEIODINE CONTAINING; lactose (bulk); Morphine; Peanut; seafood; Vagisil; glue on bandaids; - Home Meds: 1. Cymbalta 60 mg Oral cpDR 1 cap once daily 2. gabapentin 1200mg Oral tab 3 times per day 3. magnesium oxide 400 mg Oral tab twice a day 4. meclizine 25 mg Oral tab 1 tab tid prn 5. naproxen 500 mg Oral tab 1 tab 2 times per day 6. tizanidine 6 mg oral cap 1 cap 3 times per day 7. Zofran (as hydrochloride) 4 mg Oral tab 2 tabs Q8H PRN 8. prednisone 30 mg Oral tab 1 tab once daily 9. Tylenol 325 mg Oral tab 2 tabs every 4-6 hours (Last dose: 08/24/2016 19:00) - PMHx: Asthma; Chronic CSF leak; Levon's disease; peripheral neuropathy; Vertigo; stiffman syndrome; - PSHx: Tubal ligation; Rhinoplasty; Tonsillectomy; varicose veins; Hysterectomy; Sinus Surgery; left shoulder and right hip surgeries; - Social history: Smoking status: Patient states was never smoker of tobacco. No barriers to communication noted, The patient speaks fluent Scottish, Speaks appropriately for age. - Family history: Not pertinent. - : The pt / caregiver states he / she is not on anticoagulants. Home medication list is obtained from the patient. - Exposure Risk Screening:: None identified. 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 9 in. (175.26 cm); Pain 7/10; 08/25 00:56 Temp 100(O); ko2 02:01 BP 129 / 53; Pulse 72; Resp 18; Temp 100.1; Pulse Ox 100% ; Pain 6/10; ko2 08/24 22:54 Body Mass Index 36.18 (111.13 kg, 175.26 cm) ko2 MDM: 08/24 23:17 -Blood Culture (Adults Only), peripheral from different site, or from device/port/PICC mm11 etc. if present ordered. 23:17 IV Saline Lock ordered. mm11 23:17 Undress patient appropriately for examination ordered. mm11 23:17 NS 0.9% 1000 ml IV at bolus once ordered. mm11 23:17 Ondansetron 4 mg IVP once ordered. mm11 23:17 ketorolac 30 mg IVP once ordered. mm11 23:19 Amylase Ordered. EDMS 23:19 Basic Metabolic Profile Ordered. EDMS 23:19 CBC with Diff Ordered. EDMS 23:19 Lipase Ordered. EDMS 23:19 Liver Profile Ordered. EDMS 23:19 -Blood Culture Ordered. EDMS 23:19 -Influenza A&B Rapid Antigen - Nose Ordered. EDMS 23:19 Chest, 2 View (pa\E\lat) Ordered. EDMS 23:19 NOTHING BY MOUTH+DIET ordered. EDMS 23:32 -Blood Culture (Adults Only), peripheral from different site, or from device/port/PICC ml3 etc. if present complete. 23:32 BLOOD CULTURES Ordered. EDMS 08/25 00:00 Basic Metabolic Profile Reviewed. mm11 00:00 CBC with Diff Reviewed. mm11 00:00 Liver Profile Reviewed. mm11 00:00 Amylase Reviewed. mm11 00:00 Lipase Reviewed. mm11 01:06 Financial registration complete. hs2 01:20 -Influenza A&B Rapid Antigen - Nose Reviewed. mm11 01:42 Oseltamivir 75 mg PO once ordered. mm11 03:44 [facility] Payment Agreement was scanned into [employer] and attached to record. [facility] 11:30 T-Sheet-- Draft Copy was scanned into [employer] and attached to record. gb 15:03 PCR was scanned into [employer] and attached to record. gb Administered Medications: 08/24 23:44 Drug: Ondansetron 4 mg [ondansetron HCl 2 mg/mL intravenous solution (2 mL)] Route: ko2 IVP; Site: left forearm; 23:44 Drug: ketorolac 30 mg [ketorolac 30 mg/mL (1 mL) injection solution (1 mL)] Route: IVP; ko2 Site: left forearm; 23:45 Drug: NS 0.9% 1000 ml [sodium chloride 0.9 % intravenous solution] Route: IV; Rate: ko2 bolus; Site: left forearm; 08/25 02:01 Drug: Oseltamivir 75 mg [oseltamivir 75 mg capsule (1 caps)] Route: PO; ko2 Signatures: Dispatcher [employer] EDMS Emmanuelle Cota, Reg Reg gb Kamini Stewart, Credit Collections Manager Unit ml3 Dany Moya, DO DO mm11 Gay Gunderson RN RN caleb2 Sheron Oscar [facility] Yana Garza, Reg Reg hs2 The chart was reviewed and I authenticate all verbal orders and agree with the evaluation and treatment provided.Attachments: 03:44 [facility] Payment Agreement [facility] 11:30 T-Sheet-- Draft Copy Chart Complete MTDD
== END 2016-08-25 02:04 | disposition home or self-care (01) ==
LOC: M ED 22:39
DX: J10.1 Influenza due to other identified influenza virus with other respiratory manifestations (principal); J45.909 Unspecified asthma, uncomplicated; G62.9 Polyneuropathy, unspecified; G25.82 Stiff-man syndrome; G96.0 Cerebrospinal fluid leak; Z79.891 Long term (current) use of opiate analgesic; Z79.52 Long term (current) use of systemic steroids; Z79.899 Other long term (current) drug therapy; Z88.1 Allergy status to other antibiotic agents; Z88.5 Allergy status to narcotic agent; Z91.09 Other allergy status, other than to drugs and biological substances; Z91.010 Allergy to peanuts; Z91.013 Allergy to seafood
CPT/HCPCS: 71020; 80048; 80076; 82150; 83690; 85025; 87040; 87804; 96374; 96375; 99284; J1885; J2405

== ENCOUNTER 2016-10-21 14:17 | Inpatient (IN) | payer OTHER ==
[~2016-10-21] VITALS: Ht 175.3 cm; Wt 110.6 kg
[2016-10-21] MEDS ORDERED: METOCLOPRAMIDE INJ 10MG/2ML VIAL (J2765) IV PRN (15:15)
[2016-10-21] MEDS ORDERED: ONDANSETRON 4MG/2ML VIAL (J2405) IV PRN (15:15)
[2016-10-21 16:25] VITALS: BP 120/65
[2016-10-21] MEDS: LR 1,000 ML IV SCH (16:25)
[2016-10-21] MEDS ORDERED: DULO30CA PO (17:14)
[2016-10-21] MEDS ORDERED: NAPR500T PO (17:14)
[2016-10-21] MEDS ORDERED: VITA50003 PO (17:14)
[2016-10-21] MEDS ORDERED: DILA2TAB2 PO (17:14)
[2016-10-21] MEDS ORDERED: TIZA4CAP3 PO (17:18)
--- NOTE | 2016-10-21 18:00 | REPUSA ---
Clinical history: Right upper quadrant pain. Findings: The pancreas is limited in visualization secondary to overlying bowel gas, but appears izabel sly unremarkable. The liver demonstrates uniform echotexture and echogenicity, with no mass lesions. The gallbladder demonstrates multiple mobile gallstones. There is no gallbladder wall thickening. Th ere is a positive Brumfield's sign. The common bile duct measures 7 mm, and is slightly dilated. The rig ht kidney measures 9.7 cm in length and is unremarkable. There is no ascites. Impression: Gallstones, mild biliary ductal dilatation, and positive sonographic Brumfield's sign. These findings are suspicious for early acute cholecystitis. Follow-up is recommended as clinically indica kaylee.
[2016-10-21 20:00] VITALS: BP 130/80
[2016-10-21] MEDS ORDERED: HYDROmorphone HCL 1 MG/ML SYRINGE (J1170) IV ONE (20:45)
[2016-10-21] MEDS ORDERED: ACETAMINOPHEN TAB 650MG DOSE (2X325MG) PO PRN (21:45)
[2016-10-21] MEDS ORDERED: LACTATED RINGER'S 1000 ML IV ONE (21:45)
[2016-10-21] MEDS ORDERED: HYDROmorphone HCL 1 MG/ML SYRINGE (J1170) IV PRN (21:45)
[2016-10-21] MEDS: GABAPENTIN 300 MG CAP PO SCH (23:20)
[2016-10-22] VITALS: BP 128/70
[2016-10-22] MEDS: LR 1,000 ML IV SCH ×3 (00:59→15:26)
[2016-10-22] MEDS: AMPICILLIN SOD/SULBACTAM SOD 3 GM in D5W MINI-BAG PLUS 100 ML IV SCH ×4 (00:59→17:33)
[2016-10-22 08:00] VITALS: BP 131/88
[2016-10-22 08:01] LABS: ALBUMIN 3.2 GM/DL (3.2-5.2); ALBUMIN/GLOBULIN RATIO 0.76 (1.00-1.93); ALKALINE PHOSPHATASE 200 U/L (45-117); ALT/SGPT 220 U/L (12-78); AMYLASE 55 U/L (25-115); ANION GAP 7 MEQ/L (8-16); AST/SGOT 188 U/L (15-37); BASO % 0.3 % (0.0-1.0); BILIRUBIN,TOTAL 0.7 MG/DL (0.2-1.0); BLOOD UREA NITROGEN 13 MG/DL (7-18); CALCIUM LEVEL 9.3 MG/DL (8.5-10.1); CARBON DIOXIDE LEVEL 29 MEQ/L (21-32); CHLORIDE LEVEL 105 MEQ/L (98-107); CREATININE FOR GFR 0.84 MG/DL (0.55-1.02); EOS # 0.2 K/mm3 (0.0-0.50); GLOMERULAR FILTRATION RATE > 60.0 (>58); GLUCOSE, FASTING 95 MG/DL (70-105); LARGE UNSTAINED CELL # 0.1 K/mm3 (0.0-0.4); LARGE UNSTAINED CELL % 1.9 % (0.0-4.0); LYMPH # 1.9 K/mm3 (1.5-4.5); LYMPH % 24.7 % (24.0-44.0); MEAN CORPUSCULAR HEMOGLOBIN 26.7 pg (27.0-33.0); MEAN CORPUSCULAR HGB CONC 32.2 g/dl (32.0-36.5); MONO # 0.4 K/mm3 (0.0-0.8); MONO % 5.6 % (0.0-5.0); NEUTROPHILS # 5.1 K/mm3 (1.8-7.7); NEUTROPHILS % 64.6 % (36.0-66.0); PLATELET COUNT, AUTOMATED 294 k/mm3 (150-450); POTASSIUM SERUM 3.9 MEQ/L (3.5-5.1); RED CELL DISTRIBUTION WIDTH 15.6 % (11.5-14.5); SODIUM LEVEL 141 MEQ/L (136-145); TOTAL PROTEIN 7.4 GM/DL (6.4-8.2); WHITE BLOOD COUNT 7.8 K/mm3 (4.0-10.0)
[2016-10-22] MEDS: GABAPENTIN 300 MG CAP PO SCH ×2 (11:55→21:58)
[2016-10-22] MEDS: DULoxetine 30 MG CAP (CYMBALTA) PO SCH (11:55)
--- NOTE | 2016-10-22 11:56 | REP ---
Hepatobiliary scan: History: Possible acute cholecystitis. Technique: 6.6 mCi of technetium-99m mebrofenin is injected and sequential images of the right upper quadrant are obtained. Scintigraphic findings: The initial hepatocellular parenchymal uptake phase is normal and homogeneous. Intrahepatic and extrahepatic biliary tract labeling is first visualized on the 10-minute image. The gallbladder is first visualized at 20 minutes. Subsequent images demonstrate washout from the liver parenchyma into the gallbladder and small intestine. Impression: Normal hepatobiliary scan. No evidence of cystic duct obstruction. Signed by Jamil Leigh MD 10/22/2016 12:09 P
[2016-10-22] MEDS: HYDROmorphone HCL 1 MG/ML SYRINGE (J1170) IV PRN ×2 (12:04→22:23)
--- NOTE | 2016-10-22 12:50 | HPE ---
DATE OF ADMISSION: 10/21/2016 ADMISSION DIAGNOSIS: Pancreatitis, possible gallstone pancreatitis, possible acute cholecystitis. HISTORY OF PRESENT ILLNESS: The patient is a very pleasant, 46-year-old woman who was accepted in transfer from [facility] in [place]. The patient reports that she had been in generally good health. She had undergone surgery in [place] with a laparoscopic procedure on her left hip on 10/17/2016. She was doing well and recovering nicely from this. She reports that she has noted some back discomfort over the last couple of days greater than usual. At about 1830 on 10/20/2016, the patient had a dinner consisting of Bennett[employer] pie. She was awakened with severe pain in the early childhood worker hours. She described pain in her right lower chest and down into the right subcostal area. As the pain persisted, it radiated around the right flank to the back. She did have some nausea develop. She presented to [facility] for evaluation at 0156 in the morning of 10/21/2016. The patient reported that she had not had similar pains. She has not been told in the past of gallstones. She denies any prior history of hepatitis, pancreatitis or jaundice. At [facility], she underwent evaluation with some basic laboratory studies and was found to have an elevated lipase to 1114. Other liver function tests showed minimal elevations of the alkaline phosphatase and AST. Her white blood cell count was elevated at 15,000. She was apparently placed on some sort of observation status for pancreatitis. In the morning of the , she apparently had persistent discomfort. She was found to have tenderness in the upper abdomen. [facility] did not have staffing for an ultrasound to evaluate the gallbladder. A CT scan showed some calcifications in the gallbladder consistent with gallstones, but no definite gallbladder inflammation. The physician at [facility] became concerned that the patient had acute cholecystitis and she was transferred to my care in the afternoon of 10/21/2016. She reports that she is having persistent discomfort in the right costal margin region. She has had some nausea, but no emesis. She denies fevers or chills. She does note increased discomfort with deep inspiration. ALLERGIES: The patient reports a number of allergies. She reports allergies or adverse reactions to: - CIPROFLOXACIN - CLINDAMYCIN - DOXYCYCLINE - ERYTHROMYCIN Food allergies include reactions to eggs or egg derived products, fish, and peanuts. She reports that she is lactose intolerant. She indicates that she has an allergy to IODINE, both in the form of IV contrast which leads to anaphylaxis and with a local reaction to topically applied Betadine. She indicates that MORPHINE has also caused anaphylaxis in the past. She has been able to take Dilaudid, fentanyl, Percocet, and Vicodin. The patient also reports an adverse reaction to Vagisil. 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 She has chronic back pain as well as neuropathy. She has a history of migraine headaches. She has arthritis. She has a number of environmental allergies. She reports anxiety as well as diabetes mellitus. SURGICAL HISTORY: Includes bilateral tubal ligation. She had undergone sinus surgery many years ago and developed spinal fluid leaks which occasionally require treatment. She has had some dental surgery. She has had both right and left arthroscopic hip surgery with the most recent procedure on the left four days ago. She has had prior shoulder surgery. She has had treatment for varicose veins. She reports a colonoscopy about 2 years ago which apparently showed no concerning abnormalities. Also, history of hysterectomy with bilateral salpingo-oophorectomy in 2014 for endometriosis with cysts and menometrorrhagia. REVIEW OF SYSTEMS: Reveals no history of cardiac issues. She denies any pulmonary problems including cough, wheezing or sputum production. She does report that as a teenager she had right lower extremity deep vein thromboses (DVTs), but has had no recurrence for many years. She denies any dysuria or hematuria. She has had no melena or hematochezia. She generally has bowel movements perhaps every 3-5 days. She does report a history of headaches, but no history of seizure or stroke. FAMILY HISTORY: Reveals a history of some gallbladder disease in relatives. She is a never smoker and denies any alcohol use. She is and reports that she is in the process of adopting an infant child with her . PHYSICAL EXAMINATION: Reveals a very pleasant obese woman lying quietly on the hospital bed. Her vital signs at time of admission included a temperature of 99.3 degrees. Her pulse was 78. Respirations 18. Blood pressure of 120/65 with pulse oximetry of 97% on room air. Skin: Is warm and dry. Sclerae are anicteric. Mucous membranes are moist to somewhat tachy. Her teeth are in poor repair. The neck is supple without mass or bruit. Heart exam shows a regular rate and rhythm. The lungs are clear to auscultation. Abdomen is somewhat obese. She has bowel sounds present, though perhaps somewhat diminished. There is tenderness to percussion in the right upper quadrant, particularly close to the costal margin. The left side of the abdomen is soft and without significant tenderness. There is some very mild direct tenderness to palpation in the left lower quadrant. She has moderate to marked direct tenderness on palpation along the right costal margin with the most severe discomfort noted at about the midclavicular line. She has a positive Brumfield's sign. Extremities: Show no peripheral edema. She has palpable dorsalis pedis pulses and radial pulses bilaterally. LABORATORY STUDIES FROM [facility]: Include a CBC at 0210 in the morning showing a white count of 15,000 with 59% neutrophils. This was repeated later in the day showing a white count of 15.9, I believe it was still with a normal-appearing differential count. Her hemoglobin and hematocrit were normal with a normal platelet count. She had a lipase of 1114 in the early childhood worker and this was 1600 in the afternoon. Liver function tests were only minimally abnormal. She had a CT scan that suggested gallstones. There was no free air or free fluid. The pancreas to my review looked normal. Here, after transfer, she underwent a gallbladder ultrasound. This was interpreted by the radiologist as showing multiple mobile gallstones. There was no gallbladder wall thickening noted. A positive Brumfield's sign was identified. The common bile duct was 7 mm. IMPRESSION: 1. Possible acute cholecystitis. 2. Probable biliary pancreatitis with elevations of the lipase. 3. History of Levon's syndrome. 4. Chronic back pain. 5. Migraine headaches. 6. Anxiety. 7. Diabetes mellitus. 8. Neuropathy. PLAN: The patient has persistent pain and tenderness now about 18 hours after onset. She has an elevation of her white blood cell count, though her differential count is normal. She had elevations of her lipase on two occasions at [facility]. Her liver function tests are not significantly abnormal. Unfortunately, the CT scan and ultrasound both failed to identify any gallbladder wall thickening or any inflammatory changes. I suspect strongly that she has acute cholecystitis based on her history and exam. The elevation of the lipase is suggestive of biliary pancreatitis and it may be that she passed a stone and also developed cystic duct obstruction at the same time. I have recommended that we keep her nothing by mouth (n.p.o.) other than a few ice chips. I have recommended that in order to be careful about diagnosis that we obtain a nuclear biliary scan in the morning of the to confirm the acute cholecystitis. I will start her on antibiotics with Unasyn this evening. She will be provided with analgesics as necessary and she will be provided with Dilaudid on an as-needed basis. Her regular gabapentin and Cymbalta will be continued. We will recheck her labs in the morning. The patient had an opportunity to ask questions. She desires to proceed with the plan as I have outlined it. MARKEL
[2016-10-22 16:00] VITALS: BP 132/71
--- NOTE | 2016-10-22 20:50 | REPUSA ---
Clinical history: pancreatitis. Technique: T2 weighted images of the upper abdomen were obtained. MIP images of the biliary ducts wit h 3-D reconstructions were obtained for the cholangiogram portion of the study. No comparison is available. Correlation is made with the hepatobiliary nuclear medicine scan of 2016. Findings: The biliary ducts demonstrate normal caliber and contour. The common bile duct measures up to 5 mm in diameter. No stenosis, narrowing, or intraluminal filling defect is seen. The gallbladder is unremarkable There is a very small 5 mm filling defect in the dependent portion of the gallbladder , which could represent a small gallstone. The common bile duct measures 4 mm, and the common hepatic duct measures 4 mm. The pancreatic duct is not visualized. The visualized portions of the liver, spl een, pancreas, kidneys, and adrenal glands are unremarkable. There is no abdominal lymphadenopathy or ascites. The osseous structures and soft tissues are unremarkable. Impression: Unremarkable MR cholangiogram study. No biliary obstruction or dilatation. Tiny gallstone is suspected, without evidence of acute cholecystitis.
[2016-10-23] VITALS: BP 118/77
[2016-10-23] MEDS: AMPICILLIN SOD/SULBACTAM SOD 3 GM in D5W MINI-BAG PLUS 100 ML IV SCH ×4 (00:50→17:50)
[2016-10-23] MEDS: LR 1,000 ML IV SCH ×3 (00:50→21:36)
[2016-10-23 07:21] LABS: BASO % 0.4 % (0.0-1.0); EOS # 0.3 K/mm3 (0.0-0.50); EOS % 3.7 % (0.0-3.0); LARGE UNSTAINED CELL # 0.2 K/mm3 (0.0-0.4); LARGE UNSTAINED CELL % 1.7 % (0.0-4.0); LYMPH # 2.4 K/mm3 (1.5-4.5); LYMPH % 25.4 % (24.0-44.0); MEAN CORPUSCULAR HEMOGLOBIN 27.2 pg (27.0-33.0); MEAN CORPUSCULAR HGB CONC 33.1 g/dl (32.0-36.5); MEAN CORPUSCULAR VOLUME 82.3 fl (80.0-96.0); MONO # 0.5 K/mm3 (0.0-0.8); MONO % 5.4 % (0.0-5.0); NEUTROPHILS # 5.7 K/mm3 (1.8-7.7); NEUTROPHILS % 63.4 % (36.0-66.0); PLATELET COUNT, AUTOMATED 262 k/mm3 (150-450); RED CELL DISTRIBUTION WIDTH 15.1 % (11.5-14.5); WHITE BLOOD COUNT 8.9 K/mm3 (4.0-10.0)
[2016-10-23 07:49] LABS: ALBUMIN 3.3 GM/DL (3.2-5.2); ALBUMIN/GLOBULIN RATIO 0.79 (1.00-1.93); ALKALINE PHOSPHATASE 177 U/L (45-117); ALT/SGPT 145 U/L (12-78); ANION GAP 6 MEQ/L (8-16); AST/SGOT 73 U/L (15-37); BILIRUBIN,TOTAL 0.7 MG/DL (0.2-1.0); BLOOD UREA NITROGEN 15 MG/DL (7-18); CALCIUM LEVEL 9.4 MG/DL (8.5-10.1); CARBON DIOXIDE LEVEL 32 MEQ/L (21-32); CHLORIDE LEVEL 100 MEQ/L (98-107); CREATININE FOR GFR 0.96 MG/DL (0.55-1.02); GLOMERULAR FILTRATION RATE > 60.0 (>58); GLUCOSE, FASTING 92 MG/DL (70-105); POTASSIUM SERUM 3.9 MEQ/L (3.5-5.1); SODIUM LEVEL 138 MEQ/L (136-145); TOTAL PROTEIN 7.5 GM/DL (6.4-8.2)
[2016-10-23 08:00] VITALS: BP 121/70
[2016-10-23] MEDS: GABAPENTIN 300 MG CAP PO SCH ×2 (08:19→21:35)
[2016-10-23] MEDS: DULoxetine 30 MG CAP (CYMBALTA) PO SCH (08:20)
[2016-10-23 12:00] VITALS: BP 129/83
[2016-10-23 16:00] VITALS: BP 138/75
[2016-10-23 20:00] VITALS: BP 132/70
[2016-10-24] VITALS (10 sets, daily range): BP systolic 113–164; BP diastolic 68–93
[2016-10-24] MEDS: AMPICILLIN SOD/SULBACTAM SOD 3 GM in D5W MINI-BAG PLUS 100 ML IV SCH ×4 (01:00→17:21)
[2016-10-24] MEDS: DULoxetine 30 MG CAP (CYMBALTA) PO SCH (09:23)
[2016-10-24] MEDS: GABAPENTIN 300 MG CAP PO SCH ×2 (09:25→21:31)
--- NOTE | 2016-10-24 10:46 | REP ---
CHEST X-RAY: Two views. HISTORY: Right upper quadrant pain. Comparison chest x-ray August 24, 2016. FINDINGS: The lungs are well inflated and clear. Pleural angles are sharp. Heart size is normal. Pulmonary vasculature is not increased. No bony abnormality is seen. IMPRESSION: Negative chest x-ray. Signed by Jamil Leigh MD 10/24/2016 01:39 P
[2016-10-24] MEDS: LR 1,000 ML IV SCH ×2 (12:26→17:24)
[2016-10-24] MEDS ORDERED: BUPIVACAINE HCL 0.25% 30 ML VIAL As Ordered ONE (13:26)
[2016-10-24] MEDS ORDERED: MIDAZOLAM INJ 2 MG/2 ML VIAL (J2250) As Ordered ONE (14:11)
[2016-10-24] MEDS ORDERED: fentaNYL 250 MCG/5 ML INJECTION (J3010) As Ordered ONE (14:11)
[2016-10-24] MEDS ORDERED: GLYCOPYRROLATE INJ 0.2 MG/ML 2 ML VIAL As Ordered ONE (14:11)
[2016-10-24] MEDS ORDERED: LIDOCAINE 2% INJ 100 MG/5 ML SDV (FOR ANES.) As Ordered ONE (14:11)
[2016-10-24] MEDS ORDERED: KETOROLAC 60 MG/2 ML VIAL (J1885) As Ordered ONE (14:11)
[2016-10-24] MEDS ORDERED: PROPOFOL 200 MG/20 ML VIAL As Ordered ONE ×2 (14:11→15:02)
[2016-10-24] MEDS ORDERED: ONDANSETRON 4MG/2ML VIAL (J2405) As Ordered ONE (14:11)
[2016-10-24] MEDS ORDERED: NEOSTIGMINE 1MG/ML 5 ML SYRINGE (J2710) As Ordered ONE (14:11)
[2016-10-24] MEDS ORDERED: ROCURONIUM BROMIDE 50 MG/5 ML VIAL As Ordered ONE (14:11)
[2016-10-24] MEDS ORDERED: dexameTHASONE 4 MG/ML 1ML VIAL (J1100) As Ordered ONE (14:11)
[2016-10-24] MEDS ORDERED: MEPERIDINE INJ 25 MG/ML VIAL (J2175) IV PRN (16:00)
[2016-10-24] MEDS ORDERED: LR 1,000 ML IV SCH (16:00)
[2016-10-24] MEDS ORDERED: METOCLOPRAMIDE INJ 10MG/2ML VIAL (J2765) IV PRN (16:00)
[2016-10-24] MEDS ORDERED: ONDANSETRON 4MG/2ML VIAL (J2405) IV PRN (16:00)
[2016-10-24] MEDS ORDERED: fentaNYL 100 MCG/2 ML INJECTION (J3010) IV PRN (16:00)
[2016-10-24] MEDS ORDERED: PERCOCET 5MG/325MG TAB As Ordered ONE ×2 (16:09→16:49)
[2016-10-24] MEDS: PERCOCET 5MG/325MG TAB PO PRN ×2 (16:11→16:50)
[2016-10-24] MEDS: HYDROmorphone HCL 1 MG/ML SYRINGE (J1170) IV PRN (21:32)
--- NOTE | 2016-10-24 23:21 | RO ---
DATE OF PROCEDURE: 10/24/2016 PREOPERATIVE DIAGNOSIS: Cholelithiasis and recent gallstone pancreatitis. POSTOPERATIVE DIAGNOSIS: Cholelithiasis and recent gallstone pancreatitis. OPERATIVE PROCEDURE: Laparoscopic cholecystectomy. SURGEON: Sylvester Martinez MD LEAD INJECTION MOLD TECHNICIAN: ANESTHESIA: General. INDICATIONS FOR PROCEDURE: Patient is a 46-year-old woman who presented with upper abdominal pain at [facility]. She was found to have mild LFT elevations and an elevation of her lipase. She was evaluated with a CT scan, but they did not have ultrasound capabilities. She continued to have some right upper quadrant tenderness and was transferred to [facility]. An ultrasound identified cholelithiasis. Her lipase fell to normal. She had a persistent mild elevation of her liver function tests, though these were improving. An MRCP was obtained which showed a normal-sized bile ducts with no evidence of filling defect. She had no signs of acute cholecystitis on nuclear biliary scan. With her history of gallstones and pancreatitis, now resolved, she is for a laparoscopic cholecystectomy. OPERATIVE PROCEDURE: The patient was placed under general endotracheal anesthesia. The patient's abdomen was prepped and draped in a sterile fashion. 0.25% Marcaine was infiltrated at each of the trocar sites. A short supraumbilical midline incision was made and deepened through the fascia. A Tasha cannula was inserted in the abdomen was inflated carbon dioxide gas. The laparoscope was placed. Initial examination showed a normal-appearing liver. The gallbladder appeared to be quite distended, perhaps with some mild edema, though the gallbladder was not especially inflamed. The visualized portions of the small and large bowel and stomach appeared normal. The patient was tilted to a reverse Trendelenburg position and rolled to the left. Two 5 mm trocars were placed in the right upper quadrant and a third 5 mm 4 mm trocar in the left upper quadrant. Graspers were inserted. The gallbladder was aspirated of some very dark bile to allow this to be grasped. The gallbladder was grasped and elevated. Dissection was begun at the gallbladder neck. The peritoneum was opened with the hook cautery. With further dissection the cystic duct was identified and this was doubly clipped with hemoclips and divided. The cystic artery was then identified and this was also doubly clipped and divided. A second branch of the artery was identified going to the opposite side of the gallbladder and this was clipped and divided. The gallbladder was then dissected free from the gallbladder bed using cautery dissection. Once the gallbladder had been completely freed, the gallbladder was placed in an Endopouch. The right upper quadrant was irrigated and inspected. A few small bleeding points on the edge of the gallbladder fossa were controlled with the electrocautery. Final inspection showed no evidence of bleeding and no bile leak. The patient was returned to a flat position. The abdomen was deflated and the trocars were removed. The gallbladder was recovered through the Tasha site and sent for permanent pathology. The fascia at the Tasha site was closed with interrupted simple sutures of #2-0 Vicryl. The skin incisions were all closed with buried #5-0 Vicryl and Steri-Strips. Light dressings were applied. The patient tolerated the procedure well without apparent complication. She was awakened in the operating room, extubated and moved to the recovery room in stable condition.
[2016-10-25] VITALS: BP 128/78
[2016-10-25] MEDS: AMPICILLIN SOD/SULBACTAM SOD 3 GM in D5W MINI-BAG PLUS 100 ML IV SCH (00:54)
[2016-10-25 04:00] VITALS: BP 125/80
[2016-10-25 07:22] LABS: ALBUMIN 3.1 GM/DL (3.2-5.2); ALBUMIN/GLOBULIN RATIO 0.72 (1.00-1.93); BILIRUBIN,DIRECT 0.1 MG/DL (0.0-0.2); BILIRUBIN,TOTAL 0.3 MG/DL (0.2-1.0); TOTAL PROTEIN 7.4 GM/DL (6.4-8.2)
[2016-10-25 08:00] VITALS: BP 150/90
[2016-10-25] MEDS: GABAPENTIN 300 MG CAP PO SCH (08:29)
[2016-10-25] MEDS: DULoxetine 30 MG CAP (CYMBALTA) PO SCH (08:30)
== END 2016-10-25 10:15 | disposition home or self-care (01) | DRG 418 ==
LOC: M PED 16:27
PROVIDERS: ADMIT Surgery; ATTEND Surgery
PROC: 0FT44ZZ Resection of Gallbladder, Percutaneous Endoscopic Approach (ICD-10-PCS; principal; 2016-10-24 16:30)
DX: K80.60 Calculus of gallbladder and bile duct with cholecystitis, unspecified, without obstruction (principal); K86.1 Other chronic pancreatitis; Z88.1 Allergy status to other antibiotic agents; Z91.012 Allergy to eggs; Z91.013 Allergy to seafood; Z91.010 Allergy to peanuts; E73.9 Lactose intolerance, unspecified; Z88.5 Allergy status to narcotic agent; M19.90 Unspecified osteoarthritis, unspecified site; E11.9 Type 2 diabetes mellitus without complications

== ENCOUNTER 2017-02-22 17:19 | Emergency (ER) | payer OTHER ==
[~2017-02-22] VITALS: Ht 175.3 cm; Wt 110.0 kg
[~2017-02-22 17:19] MED LIST changes: +DILA2TAB6 PO; +DULO30CA PO; +NAPR500T PO; +TIZA4CAP3 PO; +VITA1CAP40 PO
[2017-02-22] MEDS ORDERED: BACL10TA2 (17:53)
[2017-02-22] MEDS ORDERED: VALI10TA (17:53)
[2017-02-22] MEDS ORDERED: diphenhydrAMINE INJ 50MG/ML VIAL (J1200) IV STA (18:10)
[2017-02-22] MEDS ORDERED: NS 1,000 ML IV ONE ×2 (18:15→19:45)
[2017-02-22] MEDS ORDERED: METOCLOPRAMIDE INJ 10MG/2ML VIAL (J2765) IV ONE (18:15)
[2017-02-22 18:40] LABS: VENOUS BASE EXCESS -0.3 (-2.0-2.0); VENOUS O2 SATURATION 64.4 % (60.0-80.0); VENOUS PARTIAL PRESSURE CO2 58.6 mmHg (38.0-50.0); VENOUS STANDARD HCO3 23.4 MEQ/L; VENOUS TOTAL CO2 29.3 MEQ/L (24.0-28.0)
[2017-02-22 18:46] LABS: BASO % 0.5 % (0.0-1.0); EOS # 0.4 K/mm3 (0.0-0.50); EOS % 5.1 % (0.0-3.0); LARGE UNSTAINED CELL # 0.2 K/mm3 (0.0-0.4); LARGE UNSTAINED CELL % 2.4 % (0.0-4.0); LYMPH # 2.6 K/mm3 (1.5-4.5); LYMPH % 31.6 % (24.0-44.0); MEAN CORPUSCULAR HEMOGLOBIN 28.1 pg (27.0-33.0); MEAN CORPUSCULAR HGB CONC 34.2 g/dl (32.0-36.5); MEAN CORPUSCULAR VOLUME 82.2 fl (80.0-96.0); MONO # 0.5 K/mm3 (0.0-0.8); MONO % 7.1 % (0.0-5.0); NEUTROPHILS % 53.3 % (36.0-66.0); PLATELET COUNT, AUTOMATED 280 k/mm3 (150-450); RED CELL DISTRIBUTION WIDTH 14.3 % (11.5-14.5); WHITE BLOOD COUNT 7.6 K/mm3 (4.0-10.0)
[2017-02-22 19:06] LABS: METHADONE URINE NEGATIVE (NEGATIVE)
[2017-02-22 19:13] LABS: ALBUMIN/GLOBULIN RATIO 1.05 (1.00-1.93); ALKALINE PHOSPHATASE 135 U/L (45-117); ALT/SGPT 23 U/L (12-78); ANION GAP 10 MEQ/L (8-16); AST/SGOT 26 U/L (15-37); BILIRUBIN,DIRECT 0.1 MG/DL (0.0-0.2); BILIRUBIN,TOTAL 0.4 MG/DL (0.2-1.0); BLOOD UREA NITROGEN 13 MG/DL (7-18); CALCIUM LEVEL 9.2 MG/DL (8.5-10.1); CARBON DIOXIDE LEVEL 27 MEQ/L (21-32); CHLORIDE LEVEL 107 MEQ/L (98-107); CREATININE FOR GFR 1.17 MG/DL (0.55-1.02); GLUCOSE, FASTING 69 MG/DL (70-105); POTASSIUM SERUM 3.6 MEQ/L (3.5-5.1); SODIUM LEVEL 144 MEQ/L (136-145); TOTAL PROTEIN 7.8 GM/DL (6.4-8.2)
--- NOTE | 2017-02-22 19:20 | REP ---
CT brain without contrast: History: Altered mental status and headache. Comparison head CT study 10/22/2011. CT findings: Bone window settings demonstrate an intact bony calvarium. The patient is apparently status post paranasal sinus surgery. No ethmoid septations are visible. Otherwise the visualized paranasal sinuses are clear. No intraorbital abnormality is seen. Ospina-white differentiation pattern is normal above and below the tentorium. There is no evidence of intracranial hemorrhage. No infarct, extra-axial fluid collection, mass or midline shift is seen. Impression: No intracranial abnormality. The patient appears to be status post paranasal sinus surgery. Signed by Jamil Leigh MD 02/22/2017 07:41 P
--- NOTE | 2017-02-22 19:20 | REP ---
Portable chest x-ray: Single view: History: Altered mental status. Comparison chest x-ray 10/24/2016. Findings: EKG monitoring electrodes overlie the chest. Lungs are symmetrically aerated and clear. Pleural angles are sharp. Heart size is normal. Pulmonary vasculature is not increased. Impression: Negative portable chest x-ray. Signed by Jamil Leigh MD 02/22/2017 07:41 P
[2017-02-22 21:16] VITALS: BP 118/71
--- NOTE | 2017-02-22 21:20 | REPUSA ---
CLINICAL HISTORY: -NEURO SYMPTOMS, SEVERE HEADACHE, LETHARGY TECHNIQUE: Three dimensional pslr-in-stbixv angiography is performed of the [place]. The sae dy was performed without IV contrast agent. FINDINGS: The supraclinoid portions of the internal carotid arteries are of normal shape. The normal bifurcation is seen. The middle cerebral arteries are unremarkable in appearance. The posterior circu lation is visualized and shows no evidence of occlusion or aneurysm formation. The basilar tip is see n and shows no aneurysm formation. There is no evidence of beading to suggest vasculitis. IMPRESSION: MRA of the [place] is within normal limits. Thank you for your kind referral of this patient.
--- NOTE | 2017-02-22 21:20 | REPUSA ---
CLINICAL HISTORY: -NEURO SYMPTOMS, SEVERE HEADACHE, LETHARGY TECHNIQUE: MRI of the brain was performed without administration of intravenous contrast material. T1 spine echo, T2 fast spin echo, DWI and FLAIR sequences were obtained in sagittal, axial and coronal planes. FINDINGS: The sella and parasellar regions are unremarkable in appearance. The corpus callosum and cerebellar t onsils are of normal configuration and position. There are no intra or extra-axial collections. There is no mass effect or midline shift. There is no evidence of hematoma formation. There is no hydrocep halus. The brain stem shows no mass effects, infarcts or hemorrhage. There are no cerebellopontine tumors. T he acoustic nerves are symmetrical. No cerebellar intra-axial pathology delineated. The fourth ventri ismael and aqueduct are normal. No abnormalities of the optic nerves are identified. There is no evidenc e of atrophic or degenerative changes. No dural or subdural masses or collections are detected. There is no evidence of restricted diffusion. The visualized arterial structures demonstrate normal appearing flow voids. The VII and VIII nerve bu ndles are visualized and are unremarkable in appearance. There are no suspicious signal abnormalities within the infra or supratentorial space. Mucosal thickening is seen involving bilateral ethmoid and maxillary sinuses compatible with chronic sinusitis. IMPRESSION: Chronic ethmoid and maxillary sinusitis, otherwise normal MRI of the brain. Thank you for your kind referral of this patient.
--- NOTE | 2017-02-23 08:20 | ECGEPIP ---
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
[2017-02-23] MEDS ORDERED: VALI5TAB PO (11:54)
[2017-02-23] MEDS ORDERED: BACL10TA2 PO (11:54)
[2017-02-23] MEDS ORDERED: DULO1CAP3 PO (13:46)
[2017-02-23] MEDS ORDERED: MAGN400T5 PO (13:51)
[2017-02-23] MEDS ORDERED: VITA30005 SL (13:51)
[2017-02-23] MEDS ORDERED: ADVI200T PO (13:51)
[2017-02-23] MEDS ORDERED: VITA200015 PO (13:51)
== END 2017-02-22 23:10 | disposition home or self-care (01) ==
LOC: M ED 17:19
DX: R41.82 Altered mental status, unspecified (principal); E86.0 Dehydration; G89.29 Other chronic pain; M54.9 Dorsalgia, unspecified; G43.909 Migraine, unspecified, not intractable, without status migrainosus; J45.909 Unspecified asthma, uncomplicated; K57.30 Diverticulosis of large intestine without perforation or abscess without bleeding; F32.9 Major depressive disorder, single episode, unspecified; F41.9 Anxiety disorder, unspecified; Z88.1 Allergy status to other antibiotic agents; Z88.8 Allergy status to other drugs, medicaments and biological substances; Z88.5 Allergy status to narcotic agent; Z91.010 Allergy to peanuts; Z91.012 Allergy to eggs; Z91.041 Radiographic dye allergy status; Z91.011 Allergy to milk products; Z91.013 Allergy to seafood; Z79.899 Other long term (current) drug therapy
CPT/HCPCS: 36415; 51701; 70450; 70544; 70551; 71010; 80048; 80076; 80307; 81001; 82140; 82550; 82553; 82803; 83605; 84443; 85025; 87040; 87086; 93005; 93041; 99285; G0480

== ENCOUNTER 2017-02-23 11:25 | Emergency (ER) | payer OTHER ==
[~2017-02-23] VITALS: Ht 175.3 cm; Wt 110.0 kg
[~2017-02-23 11:25] MED LIST changes: +BACL10TA2; +VALI10TA
[2017-02-23] MEDS ORDERED: BACL10TA2 PO (11:54)
[2017-02-23] MEDS ORDERED: VALI5TAB PO (11:54)
[2017-02-23 12:22] LABS: MEAN CORPUSCULAR HEMOGLOBIN 28.5 pg (27.0-33.0); MEAN CORPUSCULAR VOLUME 84.2 fl (80.0-96.0); WHITE BLOOD COUNT 5.7 K/mm3 (4.0-10.0)
[2017-02-23 12:23] LABS: BASO # 0.1 K/mm3 (0.0-0.2); BASO % 0.8 % (0.0-1.0); EOS # 0.4 K/mm3 (0.0-0.50); EOS % 6.2 % (0.0-3.0); LARGE UNSTAINED CELL # 0.2 K/mm3 (0.0-0.4); LARGE UNSTAINED CELL % 3.1 % (0.0-4.0); LYMPH # 1.9 K/mm3 (1.5-4.5); LYMPH % 33.6 % (24.0-44.0); MEAN CORPUSCULAR HGB CONC 33.9 g/dl (32.0-36.5); MONO # 0.4 K/mm3 (0.0-0.8); MONO % 6.3 % (0.0-5.0); NEUTROPHILS # 2.9 K/mm3 (1.8-7.7); PLATELET COUNT, AUTOMATED 307 k/mm3 (150-450); RED CELL DISTRIBUTION WIDTH 14.4 % (11.5-14.5)
[2017-02-23 12:24] LABS: ADD MANUAL DIFFER NO; DIFF SLIDE NUMBER 130
--- NOTE | 2017-02-23 13:09 | REP ---
Portable chest: Single view. History: Syncope. Near-syncope. Comparison study: February 22, 2017. Findings: EKG monitoring electrodes are seen. Lungs remain well inflated and clear. Pleural angles are sharp. Heart size is normal. No significant bony abnormality. Impression: No active disease. Signed by Jamil Leigh MD 02/23/2017 01:01 P
[2017-02-23 13:27] LABS: ALKALINE PHOSPHATASE 126 U/L (45-117); BILIRUBIN,TOTAL 0.3 MG/DL (0.2-1.0)
[2017-02-23] MEDS ORDERED: ACETAMINOPHEN TAB 650MG DOSE (2X325MG) PO ONE (13:30)
[2017-02-23 13:33] LABS: BLOOD UREA NITROGEN 9 MG/DL (7-18); CHLORIDE LEVEL 110 MEQ/L (98-107); CREATININE FOR GFR 1.03 MG/DL (0.55-1.02); GLOMERULAR FILTRATION RATE > 60.0 (>58); GLUCOSE, FASTING 89 MG/DL (70-105); POTASSIUM SERUM 4.9 MEQ/L (3.5-5.1); SODIUM LEVEL 145 MEQ/L (136-145)
[2017-02-23 13:34] LABS: ANION GAP 7 MEQ/L (8-16); CALCIUM LEVEL 9.3 MG/DL (8.5-10.1); CARBON DIOXIDE LEVEL 28 MEQ/L (21-32)
[2017-02-23 13:38] LABS: ALBUMIN 3.5 GM/DL (3.2-5.2); ALBUMIN/GLOBULIN RATIO 0.83 (1.00-1.93); ALT/SGPT 22 U/L (12-78); AST/SGOT 24 U/L (15-37); BILIRUBIN,DIRECT < 0.1 MG/DL (0.0-0.2); TOTAL PROTEIN 7.7 GM/DL (6.4-8.2)
[2017-02-23] MEDS ORDERED: DULO1CAP3 PO (13:46)
[2017-02-23] MEDS ORDERED: ADVI200T PO (13:51)
[2017-02-23] MEDS ORDERED: VITA200015 PO (13:51)
[2017-02-23] MEDS ORDERED: MAGN400T5 PO (13:51)
[2017-02-23] MEDS ORDERED: VITA30005 SL (13:51)
--- NOTE | 2017-02-23 16:12 | CR ---
DATE OF CONSULTATION: 02/23/2017 This is a patient of Dr. Infante from neurology at [facility], primary care at [facility], Dr. Vargas for ENT at [facility]. Her orthopedic surgeon is Dr. Barton, and Dr. Dolores Berg, who does her orthopedic braces. She is due to see a neurologist in [facility], but that is yet to be established. CHIEF COMPLAINT: Sleepiness and headaches. SUMMARY OF PRESENTATION: This is a 47-year-old with Levon's syndrome, who suffers from severe muscle spasms. She follows with neurology at [facility] for this. This is an exceedingly rare syndrome. She has had increasing lower extremity spasm. For this she normally takes Valium. Her dose has been increased four times over the last few weeks. She was seen in the emergency department last night and was told to decrease her dose of Valium and came back to the emergency department today. She has been having episode where she falls sleep. It does not appear to be syncopized, as she arouses to voice, but she says she feels like she "not there." Spasms have been worsening over the course of weeks and months. She has headache, which is bifrontal. She chronically suffers from headache. This is worse. She is afraid that she may have a cerebrospinal fluid (CSF) leak, which she last experienced 2-1/2 years ago., She does not describe any unusual rhinorrhea. Normal morning, it might take her 4 hours to get her legs to move. She has to wear corrective braces, as her feet are spasmed chronically. She has no sensation in her feet by report. PAST MEDICAL HISTORY: Notable for: 1. Total hysterectomy. 2. Tubal ligation. 3. Tooth extraction. 4. Colonoscopy. 5. Surgeries to both hips, her left shoulder. 6. Gallbladder removed this year. 7. Levon's syndrome. 8. Glucose intolerance. ALLERGIES: She has listed allergies to CIPRO, CLINDAMYCIN, DOXYCYCLINE, egg yolk, ERYTHROMYCIN, IODINE, LACTOSE, MORPHINE, peanut, shellfish, VAGISIL. MEDICATIONS AT HOME: Listed as meclizine, ondansetron, loratadine, Neurontin, vitamin D, Naprosyn, baclofen, Valium, duloxetine, vitamin D, magnesium oxide, vitamin B12, Advil. FAMILY HISTORY: Unremarkable for neuromuscular disorders. SOCIAL HISTORY: She is a nonsmoker. Does not drink any alcohol. Does not use any intravenous (IV) drugs. Is a dependent. Is trying to adopt a child. REVIEW OF SYSTEMS: Notable for some light sensitivity. No chest pain. No shortness of breath. She has chronic abdominal pain since her gallbladder surgery. After she eats she tends to have loose stools quickly. Otherwise is unremarkable. PHYSICAL EXAMINATION: Temperature is 96.8 pulse 60, respirations 18, blood pressure 126/78, 99% on room air. Orthostatic vital signs were ordered in the emergency department. She does show a heart rate elevation with position change but relatively stable blood pressure. She is symptomatic in all positions. She is awake, appropriately interactive, a reasonable historian. Head is normocephalic. Frontal sinuses are tender, more on the right than the left. She also has some tenderness of her right maxilla. Neck is supple. No cervical or supraclavicular adenopathy. Breathing is symmetrical. Inspiratory to expiratory (I-to-E) ratio is 1:3. Heart is distant sounds, normal S1, S2. Capillary refill is less than 2 seconds. Abdomen is diffusely tender, perhaps slightly more on the right than the left without rebound or guarding. There are active bowel sounds. There is no lower extremity edema. Her feet show contracture. White cell count 5.7, hemoglobin 14.6, and platelets of 307. Sodium 145, potassium 4.9, chloride 110, carbon dioxide 28, BUN 9, creatinine 1.03, glucose of 89. AST 24, ALT 22, alkaline phosphatase 126. CK 232. TSH is 2.69. Urine culture is pending. Chest x-ray done today shows no active disease. Imagine done yesterday included brain MRI and MRA. MRA was unremarkably unremarkable. MRI showed chronic ethmoid and maxillary sinusitis. Head CT shows no intracranial abnormality apart from post paranasal sinus surgery. ASSESSMENT: This is a 47-year-old with severe muscle spasms who likely has fatigue from Valium and probably is not tolerating Valium. Medication has been changed several times by her neurologist without any significant effect and with nothing but side effect. My recommendation would be to transfer to a facility with neurology, preferable with her neurologic services. Also the medications can be adjusted in hopes to make her more functional at home. Patient is having a goal of increased functionality and, in fact, adopting a child to care for. Recently she is having declining function. She may ultimately benefit from transfer to a quaternary care center. I have discussed this case with Dr. Calhoun in person.
[2017-02-23] MEDS ORDERED: NS 1,000 ML IV SCH (16:31)
[2017-02-23 18:32] VITALS: BP 120/65
--- NOTE | 2017-02-24 21:25 | ECGEPIP ---
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
== END 2017-02-23 18:38 | disposition critical access hospital (66) ==
LOC: EDBD 11:25 → M ED 13:18
DX: R55 Syncope and collapse (principal); E11.9 Type 2 diabetes mellitus without complications; F41.9 Anxiety disorder, unspecified; G89.29 Other chronic pain; M54.9 Dorsalgia, unspecified; G43.909 Migraine, unspecified, not intractable, without status migrainosus; G71.19 Other specified myotonic disorders; Z90.49 Acquired absence of other specified parts of digestive tract; Z79.899 Other long term (current) drug therapy; Z88.1 Allergy status to other antibiotic agents; Z91.89 Other specified personal risk factors, not elsewhere classified; Z91.010 Allergy to peanuts; Z91.013 Allergy to seafood; Z88.5 Allergy status to narcotic agent; Z91.012 Allergy to eggs; Z88.8 Allergy status to other drugs, medicaments and biological substances; E73.9 Lactose intolerance, unspecified

== ENCOUNTER 2017-07-31 11:38 | Emergency (ER) | payer OTHER ==
[2017-07-31] MEDS: NITROGLYCERIN 0.4 MG SUBL TABLET SL ×8 (12:23→16:12)
[2017-07-31] MEDS: ASPIRIN 81 MG CHEW TABLET PO ×2 (12:25)
[2017-07-31 12:45] LABS: BASO % 0.4 % (0.0-1.0); EOS # 0.4 10^3/uL (0.0-0.50); EOS % 4.7 % (0.0-3.0); HEMATOCRIT 42.5 % (36.0-47.0); HEMOGLOBIN 13.9 g/dl (12.0-16.0); IMMATURE GRANULOCYTE % 0.3 % (0-0); LYMPH % 32.2 % (24.0-44.0); MEAN CORPUSCULAR HEMOGLOBIN 26.7 pg (27.0-33.0); MEAN CORPUSCULAR HGB CONC 32.7 g/dl (32.0-36.5); MEAN CORPUSCULAR VOLUME 81.6 fl (80.0-96.0); MONO # 0.7 10^3/uL (0.0-0.8); MONO % 7.4 % (0.0-5.0); PLATELET COUNT, AUTOMATED 331 10^3/uL (150-450); RED BLOOD COUNT 5.21 10^6/uL (4.00-5.40); RED CELL DISTRIBUTION WIDTH 14.6 % (11.5-14.5); WHITE BLOOD COUNT 9.2 10^3/uL (4.0-10.0)
[2017-07-31 12:55] LABS: INR 1.01; PROTHROMBIN TIME 13.4 SECONDS (12.4-14.5)
[2017-07-31 12:56] LABS: PARTIAL THROMBOPLASTIN TIME 30.6 SECONDS (26.8-37.9)
[2017-07-31 13:05] LABS: ALBUMIN 3.6 GM/DL (3.2-5.2); ALBUMIN/GLOBULIN RATIO 0.95 (1.00-1.93); ALKALINE PHOSPHATASE 131 U/L (45-117); ALT/SGPT 17 U/L (12-78); ANION GAP 6 MEQ/L (8-16); AST/SGOT 17 U/L (7-37); BILIRUBIN,DIRECT < 0.1 MG/DL (0.0-0.2); BILIRUBIN,TOTAL 0.3 MG/DL (0.2-1.0); BLOOD UREA NITROGEN 16 MG/DL (7-18); CARBON DIOXIDE LEVEL 27 MEQ/L (21-32); CHLORIDE LEVEL 108 MEQ/L (98-107); CPK CREATINE PHOSPHOKINASE 151 U/L (26-192); CREATININE FOR GFR 0.96 MG/DL (0.55-1.02); GLOMERULAR FILTRATION RATE > 60.0 (>58); GLUCOSE, FASTING 86 MG/DL (70-100); LIPASE 105 U/L (73-393); POTASSIUM SERUM 4.2 MEQ/L (3.5-5.1); SODIUM LEVEL 141 MEQ/L (136-145); TOTAL PROTEIN 7.4 GM/DL (6.4-8.2); TROPONIN I < 0.02 NG/ML (< 0.10)
[2017-07-31 13:06] LABS: CK-MB VALUE MASS 1.7 NG/ML (0.0-3.6); MB/CK RELATIVE INDEX 1.12 (< OR =4)
[2017-07-31 13:36] LABS: D-DIMER QUANT 376.2 ng/ml (<500)
[2017-07-31] MEDS: READI-CAT 2 PO ×4 (15:05→16:05)
== END 2017-07-31 20:34 | disposition home or self-care (01) ==
LOC: M ED 11:38
DX: R07.9 Chest pain, unspecified (principal); K52.9 Noninfective gastroenteritis and colitis, unspecified; M54.9 Dorsalgia, unspecified; G89.29 Other chronic pain; G62.9 Polyneuropathy, unspecified; G71.19 Other specified myotonic disorders; Z82.49 Family history of ischemic heart disease and other diseases of the circulatory system; Z88.1 Allergy status to other antibiotic agents; Z88.8 Allergy status to other drugs, medicaments and biological substances; Z88.5 Allergy status to narcotic agent; Z91.012 Allergy to eggs; Z91.013 Allergy to seafood; Z91.010 Allergy to peanuts; Z91.011 Allergy to milk products; Z79.899 Other long term (current) drug therapy
CPT/HCPCS: 71046

== ENCOUNTER 2018-09-04 11:22 | Emergency (ER) | payer OTHER ==
[~2018-09-04] VITALS: Ht 175.3 cm; Wt 92.2 kg
[~2018-09-04 11:22] MED LIST changes: +ADVI200T PO; +BACL10TA2 PO; +DULO1CAP3 PO; -GABA600T PO; +GABA600T4 PO; +LORA-243 PO; -LORA10TA2 PO; +MAGN400T5 PO; +NAPR-50 PO; -NAPR500T PO; +TIZA4CAP PO; -TIZA4CAP3 PO; +VALI5TAB PO; -VITA1CAP40 PO; +VITA200015 PO; +VITA30005 SL; +VITA50005 PO; -ZOFR8TAB PO; +ZOFR8TAB24 PO
--- NOTE | 2018-09-04 14:05 | REP ---
CT Head without contrast HISTORY: Headache COMPARISON: 02/22/2017 There is no intraparenchymal hemorrhage, acute infarct, mass or midline shift. The ventricular system is normal in appearance. There is no extra cerebral collection. There is no fracture. Mucosal thickening is present in the ethmoid , frontal and sphenoid sinuses. IMPRESSION: There is no intracranial lesion. Electronically Signed by Gal Todd MD 09/04/2018 01:57 P
--- NOTE | 2018-09-04 14:08 | REP ---
Clinical: Chronic cough . Comparison: 07/31/2017 . Technique: PA and lateral. Findings: The mediastinum and cardiac silhouette are normal. The lung garcia are clear and without acute consolidation, effusion, or pneumothorax. The skeletal structures are intact and normal. Impression: 1. No acute cardiopulmonary process. Electronically Signed by Daren Chung MD 09/04/2018 02:00 P
[2018-09-04 14:47] LABS: INFLUENZA A AMPLIFICATION NEGATIVE (NEGATIVE); INFLUENZA B AMPLIFICATION NEGATIVE (NEGATIVE)
[2018-09-04] MEDS ORDERED: AUGM875T28 PO (15:09)
[2018-09-04 15:17] VITALS: BP 151/91
== END 2018-09-04 15:25 | disposition home or self-care (01) ==
LOC: M ED 11:22
DX: J01.90 Acute sinusitis, unspecified (principal); N39.0 Urinary tract infection, site not specified; F33.9 Major depressive disorder, recurrent, unspecified; F41.9 Anxiety disorder, unspecified; E16.2 Hypoglycemia, unspecified; G71.19 Other specified myotonic disorders; G96.0 Cerebrospinal fluid leak; Z88.1 Allergy status to other antibiotic agents; Z88.5 Allergy status to narcotic agent; Z88.8 Allergy status to other drugs, medicaments and biological substances; Z91.010 Allergy to peanuts; Z91.013 Allergy to seafood; Z91.018 Allergy to other foods; E73.9 Lactose intolerance, unspecified

== ENCOUNTER 2019-04-07 10:18 | Emergency (ER) | payer OTHER ==
[~2019-04-07] VITALS: Ht 175.3 cm; Wt 96.4 kg
[~2019-04-07 10:18] MED LIST changes: +AUGM875T28 PO; -DULO1CAP3 PO; +DULO1CAP6 PO; -DULO30CA PO; +DULO30CA9 PO; -NAPR-50 PO; +NAPR-837 PO
[2019-04-07] MEDS ORDERED: CLAR5TAB11 PO (10:37)
--- NOTE | 2019-04-07 11:54 | REP ---
Left wrist: Four views. History: Left wrist injury. Findings: Four views of the left wrist show overall normal mineralization. No fracture or subluxation is seen. There are small accessory ossicles adjacent to the triquetrum along its distal border. These appear corticated. Impression: No acute bony abnormality noted. Small accessory ossicles adjacent to the triquetrum. Electronically Signed by Jamil Leigh MD 04/07/2019 02:27 P
--- NOTE | 2019-04-07 12:54 | REP ---
LEFT KNEE, FIVE VIEWS: There is no evidence of an acute fracture, dislocation or intrinsic bone disease. IMPRESSION: No fracture or dislocation. Electronically Signed by Tee Ospina MD 04/08/2019 04:08 P
[2019-04-07 13:08] VITALS: BP 120/68
== END 2019-04-07 13:13 | disposition home or self-care (01) ==
LOC: EDBD 10:18 → M ED 10:18
DX: S63.502A Unspecified sprain of left wrist, initial encounter (principal); S80.02XA Contusion of left knee, initial encounter; S00.03XA Contusion of scalp, initial encounter; W10.9XXA Fall (on) (from) unspecified stairs and steps, initial encounter; Y92.099 Unspecified place in other non-institutional residence as the place of occurrence of the external cause; Y93.9 Activity, unspecified; Y99.9 Unspecified external cause status; G71.19 Other specified myotonic disorders; E73.9 Lactose intolerance, unspecified; Z91.010 Allergy to peanuts; Z91.012 Allergy to eggs; Z91.013 Allergy to seafood; Z88.1 Allergy status to other antibiotic agents; Z88.0 Allergy status to penicillin; Z91.89 Other specified personal risk factors, not elsewhere classified; Z88.5 Allergy status to narcotic agent

== ENCOUNTER 2020-01-13 10:02 | Day surgery (SDC) | payer OTHER ==
[~2020-01-13] VITALS: Ht 175.3 cm; Wt 99.8 kg
[~2020-01-13 10:02] MED LIST changes: +ALEV220T22 PO; +CHLORHEXIDINE GLUCONATE 0.12 % 15ML UDC (PERIDEX ORAL RINSE) As Ordered ONE; +CLAR5TAB11 PO; +DUPI300I; +IBUP-1114 PO; +LIDOCAINE 2% 100MG/5ML SDV (FOR ANES.) As Ordered ONE; +LIDOCAINE 2% W/ EPINEPHRINE 1.7 ML DENTAL INJ As Ordered ONE; +LR 1,000 ML IV ONE; +MAPA500T2 PO; -MECL-68 PO; +MECL1TAB31 PO; +MIDAZOLAM INJ 2MG/2ML VIAL (J2250 PER 1MG) As Ordered ONE; +OXYMETAZOLINE NASAL SPRAY (AFRIN) As Ordered ONE; +ROCURONIUM BROMIDE 50 MG/5 ML VIAL As Ordered ONE; +fentaNYL 250 MCG/5 ML INJECTION (J3010) As Ordered ONE; +propofoL 200 MG/20 ML VIAL As Ordered ONE
[2020-01-13] MEDS ORDERED: ceFAZolin SOD 2 GM in IV 1 EA IV ONE (10:30)
[2020-01-13] MEDS ORDERED: NEOSTIGMINE 10MG/10ML VIAL (J2710 PER 0.5MG) As Ordered ONE (11:32)
[2020-01-13] MEDS ORDERED: dexameTHASONE 4 MG/ML 1ML VIAL (J1100 PER 1MG) As Ordered ONE (11:33)
[2020-01-13] MEDS ORDERED: GLYCOPYRROLATE INJ 0.2 MG/ML 2 ML VIAL As Ordered ONE (11:33)
[2020-01-13] MEDS ORDERED: ONDANSETRON 4MG/2ML VIAL As Ordered ONE (11:33)
[2020-01-13] MEDS ORDERED: ACETAMINOPHEN 1000MG 100ML IV BTL (OFIRMEV) (J0131 PER 10MG) As Ordered ONE (11:38)
[2020-01-13] MEDS ORDERED: METOCLOPRAMIDE INJ 10MG/2ML VIAL (J2765 PER 1) IV PRN (12:30)
[2020-01-13] MEDS ORDERED: fentaNYL 100 MCG/2 ML INJECTION (J3010) IV PRN (12:30)
[2020-01-13] MEDS ORDERED: PERCOCET 5MG/325MG TAB PO PRN ×2 (12:30)
[2020-01-13] MEDS ORDERED: KETOROLAC 30 MG/ML 1ML VIAL IV PRN (12:30)
[2020-01-13] MEDS ORDERED: LR 1,000 ML IV SCH ×2 (12:30)
[2020-01-13] MEDS ORDERED: ONDANSETRON 4MG/2ML VIAL IV PRN (12:30)
[2020-01-13 14:05] VITALS: BP 122/74
[2020-01-13] MEDS ORDERED: IBUPROFEN 600MG TAB PO PRN (18:00)
--- NOTE | 2020-01-19 23:21 | RO ---
DATE OF PROCEDURE: 01/13/2020 PREPROCEDURE DIAGNOSIS: Decayed and periodontally involved teeth numbers 5-11, 13, and 21-29. POSTPROCEDURE DIAGNOSIS: Decayed and periodontally involved teeth numbers 5-11, 13, and 21-29. FINDINGS: The findings were consistent with the preoperative diagnosis. PROCEDURE: Extraction of remaining dentition with alveoplasty in preparation for denture. SURGEON: Asher Dunne DDS CLOCK MAKER: Opal ANESTHESIA: Anesthesia was provided by Dr. Coates ESTIMATED BLOOD LOSS FOR THE PROCEDURE: Less than 50 mL. There were no complications during the case. The patient did receive 900 mL of lactated Ringer's as replacement fluids. INDICATIONS FOR THE PROCEDURE: The patient was seen initially in our office, [facility], where she was evaluated for grossly decayed and periodontally involved remaining dentition. Several options were discussed with the patient. 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 We then proceeded with arrangements for the main operating room. We discussed all the risks, complications and alternatives of the general anesthetic, as well as the surgery that was indicated with the patient, and all questions were answered. DESCRIPTION OF PROCEDURE: The patient was seen and identified in the preoperative holding area. All necessary paperwork was completed. She was then taken to operating room #4 where she was placed under general anesthesia via nasal endotracheal intubation without any complications. The tube was secured in the head wrap by the oral maxillofacial surgeon. The patient was then prepped and draped in a sterile fashion, and a time-out was conducted. The throat was then suctioned clean and dry and a throat pack was placed. Local anesthetic in the form of 2% lidocaine with 1:100,000 epinephrine was injected into the upper and lower jaws in the areas indicated by the teeth removal. A total of 6 carpules of 1.7 mL was given. We then proceeded to create an incision and a full mucoperiosteal flap was raised on the buccal. Bone was removed and teeth with multiple roots were sectioned to allow for complete removal of all the teeth after which the sockets were curetted. An alveoloplasty was performed in preparation for a denture. The entire area was thoroughly irrigated with copious amounts of normal saline after which we sutured with a #3-0 chromic gut in a running fashion. The throat was then suctioned clean and dry and the throat pack was removed. The patient was allowed to emerge from general anesthesia and did so without any complications. She was taken to the post-anesthesia care unit (PACU) in stable condition and later discharged to home with postoperative instructions, including instructions for medications and followup.
== END 2020-01-13 14:07 | disposition home or self-care (01) ==
LOC: M SDC 10:02
PROVIDERS: ATTEND Dentist
DX: K02.9 Dental caries, unspecified (principal); E16.2 Hypoglycemia, unspecified; G71.19 Other specified myotonic disorders; G43.909 Migraine, unspecified, not intractable, without status migrainosus; F41.9 Anxiety disorder, unspecified; F32.9 Major depressive disorder, single episode, unspecified; J45.909 Unspecified asthma, uncomplicated; Z86.718 Personal history of other venous thrombosis and embolism; Z86.73 Personal history of transient ischemic attack (TIA), and cerebral infarction without residual deficits; Z79.899 Other long term (current) drug therapy; Z91.041 Radiographic dye allergy status; Z91.010 Allergy to peanuts; Z91.013 Allergy to seafood; Z88.8 Allergy status to other drugs, medicaments and biological substances; Z88.5 Allergy status to narcotic agent; Z91.012 Allergy to eggs; Z91.011 Allergy to milk products; Z91.040 Latex allergy status; Z88.1 Allergy status to other antibiotic agents
CPT/HCPCS: 88300; D7210; D7310; J0131; J0690; J1100; J1885; J2250; J2405; J2710; J3010

== ENCOUNTER 2020-10-05 20:54 | Emergency (ER) | payer OTHER ==
[~2020-10-05] VITALS: Ht 175.3 cm; Wt 91.8 kg
[~2020-10-05 20:54] MED LIST changes: -CHLORHEXIDINE GLUCONATE 0.12 % 15ML UDC (PERIDEX ORAL RINSE) As Ordered ONE; -LIDOCAINE 2% 100MG/5ML SDV (FOR ANES.) As Ordered ONE; -LIDOCAINE 2% W/ EPINEPHRINE 1.7 ML DENTAL INJ As Ordered ONE; -LR 1,000 ML IV ONE; -MIDAZOLAM INJ 2MG/2ML VIAL (J2250 PER 1MG) As Ordered ONE; -OXYMETAZOLINE NASAL SPRAY (AFRIN) As Ordered ONE; -ROCURONIUM BROMIDE 50 MG/5 ML VIAL As Ordered ONE; -fentaNYL 250 MCG/5 ML INJECTION (J3010) As Ordered ONE; -propofoL 200 MG/20 ML VIAL As Ordered ONE
[2020-10-05] MEDS ORDERED: DULO1CAP5 (21:16)
[2020-10-05] MEDS ORDERED: dexameTHASONE 20MG/5ML VIAL (J1100 PER 1MG) IV ONE (21:40)
[2020-10-05] MEDS ORDERED: FAMOTIDINE INJ 20MG/2ML VIAL (S0028 PER 1) IVP ONE (21:40)
[2020-10-06 01:15] VITALS: BP 111/55
== END 2020-10-06 01:49 | disposition home or self-care (01) ==
LOC: M ED 20:54
DX: R13.10 Dysphagia, unspecified (principal); T78.03XA Anaphylactic reaction due to other fish, initial encounter; Y92.9 Unspecified place or not applicable; Y93.9 Activity, unspecified; G43.909 Migraine, unspecified, not intractable, without status migrainosus; M19.90 Unspecified osteoarthritis, unspecified site; E73.9 Lactose intolerance, unspecified; Z79.899 Other long term (current) drug therapy; Z91.041 Radiographic dye allergy status; Z91.010 Allergy to peanuts; Z91.012 Allergy to eggs; Z91.013 Allergy to seafood; Z88.1 Allergy status to other antibiotic agents; Z88.0 Allergy status to penicillin; Z91.89 Other specified personal risk factors, not elsewhere classified
CPT/HCPCS: 93041; 94760; 96374; 96375; 99285; J1100

== ENCOUNTER → 2022-05-11 | Outpatient (CLI) | payer OTHER ==
[~2022-05-11] MED LIST changes: +ALBU8.5H; +DULO1CAP5; +MECL-58 PO; +OMEP-173 PO; +ONDA-83 PO
== END ==
LOC: M RAD 17:07
PROVIDERS: ATTEND Student in an Organized Health Care Education/Training Program
DX: S62.313A Displaced fracture of base of third metacarpal bone, left hand, initial encounter for closed fracture (principal); S62.311A Displaced fracture of base of second metacarpal bone, left hand, initial encounter for closed fracture; S62.315A Displaced fracture of base of fourth metacarpal bone, left hand, initial encounter for closed fracture; V43.52XA Car driver injured in collision with other type car in traffic accident, initial encounter; Y92.9 Unspecified place or not applicable; Y93.9 Activity, unspecified; Y99.9 Unspecified external cause status

== ENCOUNTER → 2023-07-30 | Outpatient (CLI) | payer OTHER ==
[~2023-07-30] MED LIST changes: +DIAZ-654; +MECL-209 PO; -MECL1TAB31 PO; -VALI10TA
== END ==
LOC: M EKG 09:52
PROVIDERS: ATTEND Internal Medicine
DX: R29.6 Repeated falls (principal); Z53.9 Procedure and treatment not carried out, unspecified reason

== ENCOUNTER → 2023-10-07 | Outpatient (REF) | payer OTHER | LOC: M LAB REF 10:47 | PROVIDERS: ATTEND Nurse Practitioner Family | DX: R19.7 Diarrhea, unspecified (principal) ==

== ENCOUNTER → 2023-11-21 | Day surgery (SDC) | payer OTHER ==
[~2023-11-21] VITALS: Ht 175.3 cm; Wt 107.0 kg
[~2023-11-21] MED LIST changes: +ADV250INH INH; +CELE1CAP99 PO; +GLYCOPYRROLATE INJ 0.2 MG/ML 2 ML VIAL As Ordered ONE; +LIDOCAINE 2% 100MG/5ML SDV (FOR ANES.) As Ordered ONE; +METF-838 PO; +NS 1,000 ML IV ONE; +ONDANSETRON 4MG 2ML VIAL As Ordered ONE; +PANT20TA6 PO; +TUMS500C PO; +VENTAER INH; +VITA100093 PO; +fentaNYL 100 MCG/2 ML INJECTION As Ordered ONE; +propofoL 200 MG/20 ML VIAL As Ordered ONE
[2023-11-21 13:20] VITALS: BP 104/57; TEMP 96.9; O2SAT 99
== END | disposition home or self-care (01) ==
LOC: M OPP 10:03
PROVIDERS: ATTEND Internal Medicine Gastroenterology
DX: K52.9 Noninfective gastroenteritis and colitis, unspecified (principal); D12.2 Benign neoplasm of ascending colon; R13.10 Dysphagia, unspecified; K29.50 Unspecified chronic gastritis without bleeding; K64.8 Other hemorrhoids; K64.4 Residual hemorrhoidal skin tags; R11.0 Nausea; R12 Heartburn; Z87.19 Personal history of other diseases of the digestive system; E11.9 Type 2 diabetes mellitus without complications; J45.909 Unspecified asthma, uncomplicated; Z79.899 Other long term (current) drug therapy; Z86.718 Personal history of other venous thrombosis and embolism; Z85.41 Personal history of malignant neoplasm of cervix uteri; Z86.73 Personal history of transient ischemic attack (TIA), and cerebral infarction without residual deficits; Z88.8 Allergy status to other drugs, medicaments and biological substances; Z92.21 Personal history of antineoplastic chemotherapy; Z88.1 Allergy status to other antibiotic agents; Z91.041 Radiographic dye allergy status; Z90.710 Acquired absence of both cervix and uterus; Z88.5 Allergy status to narcotic agent; Z91.040 Latex allergy status; Z91.010 Allergy to peanuts
CPT/HCPCS: 43239; 45380; 45385; 88305; J2405; J3010

== ENCOUNTER → 2023-12-12 | Outpatient (CLI) | payer OTHER ==
[~2023-12-12] MED LIST changes: -GLYCOPYRROLATE INJ 0.2 MG/ML 2 ML VIAL As Ordered ONE; -LIDOCAINE 2% 100MG/5ML SDV (FOR ANES.) As Ordered ONE; -NS 1,000 ML IV ONE; -ONDANSETRON 4MG 2ML VIAL As Ordered ONE; -fentaNYL 100 MCG/2 ML INJECTION As Ordered ONE; -propofoL 200 MG/20 ML VIAL As Ordered ONE
== END ==
LOC: M LRY 11:12
PROVIDERS: ATTEND Nurse Practitioner Family
DX: K86.81 Exocrine pancreatic insufficiency (principal)

== ENCOUNTER → 2024-03-24 | Outpatient (CLI) | payer OTHER ==
[~2024-03-24] MED LIST changes: +GABA-1490 PO; -GABA600T4 PO
== END ==
LOC: M PLAIMG 09:49
PROVIDERS: ATTEND Nurse Practitioner Family
DX: K86.81 Exocrine pancreatic insufficiency (principal); Z90.49 Acquired absence of other specified parts of digestive tract

== ENCOUNTER → 2024-04-30 | Outpatient (REF) | LOC: M PLAIMG 11:13 | PROVIDERS: ATTEND Internal Medicine | DX: R52 Pain, unspecified (principal) ==

== ENCOUNTER 2024-05-24 06:17 | Emergency (ER) | payer OTHER ==
[~2024-05-24] VITALS: Ht 175.3 cm; Wt 102.0 kg
[~2024-05-24 06:17] MED LIST changes: -ADV250INH INH; +ADVA1AER9 INH
[2024-05-24 06:36] VITALS: TEMP 98.1
[2024-05-24 06:47] LABS: BASO % 0.4 % (0.0-1.0); EOS # 0.4 10^3/uL (0.0-0.5); HEMATOCRIT 44.1 % (36.0-47.0); HEMOGLOBIN 14.8 g/dl (12.0-15.5); LYMPH # 3.4 10^3/uL (1.5-5.0); LYMPH % 36.1 % (24.0-44.0); MEAN CORPUSCULAR HEMOGLOBIN 28.5 pg (27.0-33.0); MEAN CORPUSCULAR HGB CONC 33.6 g/dl (32.0-36.5); MEAN CORPUSCULAR VOLUME 84.8 fl (80.0-96.0); MONO # 0.7 10^3/uL (0.0-0.8); MONO % 7.8 % (2.0-8.0); NEUTROPHILS # 4.9 10^3/uL (1.5-8.5); NEUTROPHILS % 51.4 % (36.0-66.0); PLATELET COUNT, AUTOMATED 305 10^3/uL (150-450); WHITE BLOOD COUNT 9.5 10^3/uL (4.0-10.0)
[2024-05-24 07:01] LABS: INR 0.94; PARTIAL THROMBOPLASTIN TIME 27.7 SECONDS (24.8-34.2); PROTHROMBIN TIME 12.9 SECONDS (12.5-14.5)
[2024-05-24 07:17] LABS: CALCIUM LEVEL 9.5 MG/DL (8.5-10.1); CREATININE FOR GFR 1.19 MG/DL (0.55-1.30); GLOMERULAR FILTRATION RATE 50.5 (>51)
[2024-05-24 09:00] VITALS: BP 114/66; O2SAT 96
[2024-05-24] MEDS ORDERED: HYDR-3713 PO (09:06)
== END 2024-05-24 09:27 | disposition home or self-care (01) ==
LOC: M ED 06:17
DX: S30.1XXA Contusion of abdominal wall, initial encounter (principal); S70.02XA Contusion of left hip, initial encounter; S80.02XA Contusion of left knee, initial encounter; R91.8 Other nonspecific abnormal finding of lung field; V40.5XXA Car driver injured in collision with pedestrian or animal in traffic accident, initial encounter; Y92.410 Unspecified street and highway as the place of occurrence of the external cause; Y93.9 Activity, unspecified; Y99.9 Unspecified external cause status; J45.909 Unspecified asthma, uncomplicated; R42 Dizziness and giddiness; E78.5 Hyperlipidemia, unspecified; K21.9 Gastro-esophageal reflux disease without esophagitis; G71.11 Myotonic muscular dystrophy; Z79.899 Other long term (current) drug therapy; Z91.041 Radiographic dye allergy status; Z91.010 Allergy to peanuts; Z88.1 Allergy status to other antibiotic agents; Z91.012 Allergy to eggs; Z88.3 Allergy status to other anti-infective agents; Z88.5 Allergy status to narcotic agent; Z91.013 Allergy to seafood; Z91.040 Latex allergy status; Z88.8 Allergy status to other drugs, medicaments and biological substances
CPT/HCPCS: 70450; 71250; 72125; 72128; 72131; 73030; 73521; 73552; 74176; 80047; 80048; 85025; 85610; 85730; 86850; 86900; 86901; 93005; 99291; G0390